=== PATIENT | female | born 1955 | race African-American/Black ===

== ENCOUNTER 2018-08-26 09:03 | Emergency (ER) | payer SELFPAY ==
--- NOTE | 2018-08-26 10:21 | ER Document Report ---
ED Medical Screen (RME) - General Chief Complaint: Shoulder Pain Stated Complaint: SHOULDER PAIN Time Seen by Provider: 08/26/18 10:11 Mode of Arrival: Ambulatory Information source: Patient Notes: Patient is a 63-year-old female comes emergency room complaining of right shoulder pain and inability to raise her right shoulder and having numbness and tingling going down the fingers of the right arm. On my physical exam patient did not inform me that going back a few months ago she was living in [place] where they do traveling mammograms and she went to have one done they contacted her and told her she had a lump on her breast on the right side to come back they did a biopsy and she went home it started to heal up where they done the biopsy and after a few more weeks it started to D has and patient attempted to fix it herself with antibiotic cream and then it got aggressive and she is not able to see a physician because she lost her insurance and she moved here to [place]. Currently she is lost the feeling in her right arm and on evaluation of her biopsy area there is an advanced necrosis of her right upper breast and into her axilla. Patient is being moved over to the main side. TRAVEL OUTSIDE OF THE U.S[place] IN LAST 30 DAYS: No - HPI Onset: Other - 2 months ago Quality of pain: Pressure, Throbbing Severity: Severe Pain Level: 4 Exacerbated by: Movement Relieved by: Denies Similar symptoms previously: Yes Recently seen / treated by doctor: No - Related Data Allergies/Adverse Reactions: No Known Allergies Allergy (Verified 08/26/18 09:05) Past Medical History - General Information source: Patient Review of Systems - Review of Systems Constitutional: No symptoms reported EENT: No symptoms reported Cardiovascular: No symptoms reported Respiratory: No symptoms reported Gastrointestinal: No symptoms reported Genitourinary: No symptoms reported Female Genitourinary: No symptoms reported Musculoskeletal: Muscle pain Skin: No symptoms reported Hematologic/Lymphatic: No symptoms reported Neurological/Psychological: Tingling -: Yes All other systems reviewed and negative Physical Exam - Vital signs Vitals: Temp Pulse Resp BP Pulse Ox 98.9 F 124 H 26 H 139/69 H 98 08/26/18 09:14 08/26/18 09:14 08/26/18 09:14 08/26/18 09:14 08/26/18 09:14 Interpretation: Hypertensive, Tachycardic - Notes Notes: This is a well-nourished well-developed 63-year-old female who is in no apparent distress at this time however she does appear very uncomfortable. Auscultation of the lungs show she has bilateral breath sounds increased and clear to auscultation. Heart is tachycardic no murmur heard Examination right shoulder shows extensive necrosis of the right shoulder and axillary area this is on just a brief glimpse in view. Needs further evaluation on main side of room. Course - Vital Signs Vital signs: Temp Pulse Resp BP Pulse Ox 98.9 F 124 H 26 H 139/69 H 98 08/26/18 09:14 08/26/18 09:14 08/26/18 09:14 08/26/18 09:14 08/26/18 09:14 Doctor's Discharge - Discharge Clinical Impression: Wound of right shoulder Qualifiers: Encounter type: initial encounter Qualified Code(s): S41.001A - Unspecified open wound of right shoulder, initial encounter
--- NOTE | 2018-08-26 11:04 | ER Document Report ---
ED General - General Chief Complaint: Shoulder Pain Stated Complaint: SHOULDER PAIN Time Seen by Provider: 08/26/18 10:11 Mode of Arrival: Ambulatory Notes: This is a 63-year-old female to emergency department for evaluation of abnormal swelling to her right upper extremity as well as deformed breast. Patient was told that she needed breast biopsy several years ago but did not have that happen. Has noticed over the last couple of years increasing deformity of the right breast. Necrotic looking tissue. Right arm became more more swollen and has some numbness and tingling as well. Intermittent chills and fevers at night. No abnormal weight gain or weight loss. States that she has not had insurance so has not been able to get follow-up care. She is concerned she may have breast cancer. TRAVEL OUTSIDE OF THE [place] IN LAST 30 DAYS: No - HPI Onset/Duration: Gradual, Constant Quality of pain: Achy Severity: Moderate Pain Level: 2 - Related Data Allergies/Adverse Reactions: No Known Allergies Allergy (Verified 08/26/18 09:05) Past Medical History - General Information source: Patient - Social History Smoking Status: Current Every Day Smoker Chew tobacco use (# tins/day): No Frequency of alcohol use: Social Drug Abuse: None Lives with: Family Family History: Reviewed & Not Pertinent Patient has suicidal ideation: No Patient has homicidal ideation: No Renal/ Medical History: Denies: Hx Peritoneal Dialysis Review of Systems - Review of Systems Notes: Constitutional: denies: Chills, Diaphoresis, Fever, Malaise, Weakness EENT: denies: Eye discharge, Blurred vision, Tearing, Double vision, Nose congestion, Nose discharge, Throat swelling, Mouth pain Cardiovascular: denies: Palpitations, Heart racing, Orthopnea, Dyspnea, Chest pain Respiratory: denies: Cough, Hurts to breathe, Wheezing, Shortness of breath Gastrointestinal: denies: Abdominal pain, Diarrhea, Nausea, Vomiting, Black stools, bright red blood in stool Genitourinary: denies: Burning, Dysuria, Discharge, Frequency, Flank pain, Hematuria Musculoskeletal: denies: Joint pain, Joint swelling, Muscle pain, Muscle stiffness, back pain Hematologic/Lymphatic: denies: Anemia, Easy bleeding, Easy bruising, Blood clots Neurological/Psychological: denies: Confusion, Dementia, Depression, Loss of consciousness Skin: Patient has abnormal skin lesions and breakdown of the skin around the right breast with deformed right breast tissue. Physical Exam - Vital signs Vitals: Temp Pulse Resp BP Pulse Ox 98.9 F 124 H 26 H 139/69 H 98 08/26/18 09:14 08/26/18 09:14 08/26/18 09:14 08/26/18 09:14 08/26/18 09:14 Interpretation: Normal - General General appearance: Appears well, Alert - HEENT Head: Normocephalic, Atraumatic Eyes: Normal Pupils: PERRL - Respiratory Respiratory status: No respiratory distress Chest status: Nontender Breath sounds: Normal Chest palpation: Normal - Cardiovascular Rhythm: Tachycardia Heart sounds: Normal auscultation Murmur: No - Abdominal Inspection: Normal Distension: No distension Bowel sounds: Normal Tenderness: Nontender Organomegaly: No organomegaly - Back Back: Normal, Nontender - Extremities General upper extremity: Normal inspection, Nontender, Edema, Normal color, Normal ROM, Other - Mild edema noted to the right upper extremity. General lower extremity: Normal inspection, Nontender, Normal color, Normal ROM , Normal temperature, Normal weight bearing. No: Nevaeh's sign - Neurological Neuro grossly intact: Yes Cognition: Normal Orientation: AAOx4 Khris Coma Scale Eye Opening: Spontaneous Khris Coma Scale Verbal: Oriented Khris Coma Scale Motor: Obeys Commands Khris Coma Scale Total: 15 Speech: Normal Motor strength normal: LUE, RUE, LLE, RLE Sensory: Normal - Psychological Associated symptoms: Normal affect, Normal mood - Skin Skin Temperature: Warm Skin Moisture: Dry Skin Color: Other - The skin tissue to the right breast is necrotic in nature with abnormal appearance consistent with possible breast cancer. Appears to have chronic appearance. Course - Re-evaluation Re-evalutation: 08/26/18 12:52 Patient has a very concerning exam for advanced breast cancer. Is tachycardic and tachypneic. Will consult with general surgeon. Will order CT scan of the chest to evaluate the extent of the necrosis. Also in the setting of tachycardia and tachypnea CT scan will help rule out pulmonary embolism. I have consulted with the general surgeon, Dr. Oh for guidance and the initial treatment of this lady who more than likely has of breast cancer. 08/26/18 13:31 Her Althea to do a fine-needle aspiration here at the bedside. Consulted with Dr. Hager with oncology who is willing to see her as an outpatient to get started on chemo and radiation. CT scan is definitely concerning for fungating breast mass. Patient has been counseled with regards to the results. She is taking the news quite well. 08/26/18 13:32 Laboratory 08/26/18 08/26/18 08/26/18 11:42 11:42 11:42 WBC 4.3 RBC 4.34 Hgb 13.9 Hct 39.6 MCV 91 MCH 32.1 MCHC 35.2 RDW 15.4 H Plt Count 151 Seg Neutrophils % 52.8 Lymphocytes % 29.7 Monocytes % 14.4 H Eosinophils % 2.0 Basophils % 1.1 Absolute Neutrophils 2.3 Absolute Lymphocytes 1.3 Absolute Monocytes 0.6 Absolute Eosinophils 0.1 Absolute Basophils 0.0 Sodium 142.8 Potassium 4.2 Chloride 105 Carbon Dioxide 26 Anion Gap 12 BUN 14 Creatinine 0.56 Est GFR ( Amer) > 60 Est GFR (Non-Af Amer) > 60 Glucose 111 H Lactic Acid 1.2 Calcium 9.7 Total Bilirubin 0.6 Direct Bilirubin 0.3 Neonat Total Bilirubin Not Reportable Neonat Direct Bilirubin Not Reportable Neonat Indirect Bili Not Reportable AST 26 ALT 14 Alkaline Phosphatase 96 Total Protein 7.7 Albumin 3.5 Chest X-Ray 08/26/18 11:13 IMPRESSION: Bibasilar atelectasis. 2.5 x 1.4 cm nodule projected over the right lower hilum, either an enlarged lymph node or primary lung nodule Chest/Abdomen CTA 08/26/18 11:48 IMPRESSION: No CT angio evidence of acute pulmonary emboli or thoracic aortic dissection. Large right breast mass with malignant adenopathy in the right axilla involving the brachials plexus and encasing the right axillary artery. Patency of the right axillary/subclavian vein is difficult to discern on today's study. Significant contralateral left axillary adenopathy 08/26/18 14:02 The biopsy has been performed. Specimen sent to pathology. Will DC at this time based on Dr. Hager's recommendations. She thinks that she can take care of this patient as an outpatient. Patient has been advised to return in the event that she develops any worsening symptoms or needs any help with her navigation through this medical system. - Vital Signs Vital signs: Temp Pulse Resp BP Pulse Ox 98.9 F 124 H 26 H 139/69 H 98 08/26/18 09:14 08/26/18 09:14 08/26/18 09:14 08/26/18 09:14 08/26/18 09:14 - Laboratory Result Diagrams: 08/26/18 11:42 08/26/18 11:42 Laboratory results interpreted by me: 08/26/18 08/26/18 11:42 11:42 RDW 15.4 H Monocytes % 14.4 H Glucose 111 H - EKG Interpretation by Me EKG shows normal: Bells, Intervals, QRS Complexes, ST-T Waves Rate: Tachycardia Discharge - Discharge Clinical Impression: Cancer of right breast Qualifiers: Breast location: unspecified site of breast Estrogen receptor status: unspecified Patient sex: female Qualified Code(s): C50.911 - Malignant neoplasm of unspecified site of right female breast Condition: Good Disposition: HOME, SELF-CARE Instructions: Breast Lumps ([facility]) Additional Instructions: At this time it appears that you may have breast cancer. A biopsy was obtained today. Please go directly to Dr. Hager's office today she will see you at this time. Prescriptions: Hydrocodone/Acetaminophen [Roscoe 5-325 mg Tablet] 1 tab PO TID PRN 5 Days #20 tablet PRN Reason: Pain Scale Of 3 Referrals: WENDY HAGER MD [ACTIVE STAFF] - 08/26/18 2:05 pm
--- NOTE | 2018-08-26 11:38 | RADIOLOGY REPORT (SQ) ---
EXAM DESCRIPTION: CHEST SINGLE VIEW COMPLETED DATE/TIME: 08/26/2018 11:28 am REASON FOR STUDY: chest pain COMPARISON: None. EXAM PARAMETERS: NUMBER OF VIEWS: One view. TECHNIQUE: Single frontal radiographic view of the chest acquired. RADIATION DOSE: NA LIMITATIONS: None. FINDINGS: LUNGS AND PLEURA: Minimal bibasilar atelectasis. Lungs are otherwise well inflated and cl ear. No pleural effusion or pneumothorax. MEDIASTINUM AND HILAR STRUCTURES: Projected over the right lower hilum, a 2.5 by 1.4 cm nodule is pre sent. This could either represent an enlarged right hilar lymph node or small right basilar lung nod ule. HEART AND VASCULAR STRUCTURES: Heart normal in size. Normal vasculature. BONES: No acute findings. HARDWARE: None in the chest. OTHER: No other significant finding. IMPRESSION: Bibasilar atelectasis. 2.5 x 1.4 cm nodule projected over the right lower hilum, either an enlarged lymph node or primary adriana ng nodule TECHNICAL DOCUMENTATION: JOB ID: [id number] [employer]- All Rights Reserved Reading location - IP/workstation name: [facility]
[2018-08-26 12:02] LABS: ABSOLUTE EOSINOPHILS # (AUTO) 0.1 10^3/uL (0.0-0.6); ABSOLUTE LYMPHOCYTES (AUTO) 1.3 10^3/uL (0.5-4.7); ABSOLUTE MONOCYTES (AUTO) 0.6 10^3/uL (0.1-1.4); ABSOLUTE NEUT (AUTO) 2.3 10^3/uL (1.7-8.2); BASOPHILS % (AUTO) 1.1 % (0-2); HEMATOCRIT 39.6 % (36.0-47.0); HEMOGLOBIN 13.9 g/dL (12.0-15.5); LYMPHOCYTES % (AUTO) 29.7 % (13-45); MEAN CORPUSCULAR HEMOGLOBIN 32.1 pg (27.0-33.4); MEAN CORPUSCULAR HGB CONC 35.2 g/dL (32.0-36.0); MEAN CORPUSCULAR VOLUME 91 fl (80-97); MONOCYTES % (AUTO) 14.4 % (3-13); PLATELET COUNT 151 10^3/uL (150-450); RED BLOOD COUNT 4.34 10^6/uL (3.72-5.28); RED CELL DISTRIBUTION WIDTH 15.4 % (11.5-14.0); SEGMENTED NEUTROPHILS % (AUTO) 52.8 % (42-78); TOTAL CELLS COUNTED % (AUTO) 100 %; WHITE BLOOD COUNT 4.3 10^3/uL (4.0-10.5)
[2018-08-26 12:25] LABS: ALANINE AMINOTRANSFERASE 14 U/L (9-52); ALBUMIN 3.5 g/dL (3.5-5.0); ALKALINE PHOSPHATASE 96 U/L (38-126); ANION GAP 12 (5-19); ASPARTATE AMINO TRANSFERASE 26 U/L (14-36); BILIRUBIN,DIRECT 0.3 mg/dL (0.0-0.4); BILIRUBIN,TOTAL 0.6 mg/dL (0.2-1.3); BLOOD UREA NITROGEN 14 mg/dL (7-20); CALCIUM 9.7 mg/dL (8.4-10.2); CARBON DIOXIDE 26 mmol/L (22-30); CHLORIDE 105 mmol/L (98-107); GLUCOSE 111 mg/dL (75-110); POTASSIUM 4.2 mmol/L (3.6-5.0); SODIUM 142.8 mmol/L (137-145); TOTAL PROTEIN 7.7 g/dL (6.3-8.2)
--- NOTE | 2018-08-26 13:26 | RADIOLOGY REPORT (SQ) ---
EXAM DESCRIPTION: CTA CHEST COMPLETED DATE/TIME: 08/26/2018 1:04 pm REASON FOR STUDY: chest pain, tachycardia COMPARISON: Chest films earlier today TECHNIQUE: CT scan of the chest performed using helical scanning technique with dynamic intravenous contrast injection. Images reviewed with lung, soft tissue and bone windows. Reconstructed coronal and sagittal MPR images reviewed. Additional 3 dimensional post-processing performed to develop Maximal Intensity Projection images (KS P). All images stored on PACS. All CT scanners at this facility use dose modulation, iterative reconstruction, and/or weight based d osing when appropriate to reduce radiation dose to as low as reasonably achievable (ALARA). [facility]: Dose Right [facility]: CareDose [facility]: Dose Right [facility]: Teradose 4D [facility]: Voice123 CONTRAST TYPE AND DOSE: contrast/concentration: Isovue 350.00 mg/ml; Total Contrast Delivered: 75.0 ml; Total Saline Delivered: 110.0 ml Contrast bolus optimized for the pulmonary arteries. Contrast bolus is diagnostic for the thoracic a pricilla. RENAL FUNCTION: GFR > 60. RADIATION DOSE: CT Rad equipment meets quality standard of care and radiation dose reduction techniq ues were employed. CTDIvol: 15.0 - 39.7 mGy. DLP: 517 mGy-cm. . LIMITATIONS: None. FINDINGS: LUNGS AND PLEURA: There is bibasilar bandlike atelectasis. No right hilar or lower lung n odule is identified. Shadow on plain film earlier today is most likely the right-sided pulmonary vei n. No pleural effusions. No pneumothorax. AORTA AND GREAT VESSELS: No aneurysm. No thoracic aortic dissection. HEART: No pericardial effusion. No significant coronary artery calcifications. PULMONARY ARTERIES: No emboli visualized in the main pulmonary arteries or the segmental branches. HILAR AND MEDIASTINAL STRUCTURES: No identified masses or abnormal nodes. HARDWARE: None in the chest. UPPER ABDOMEN: No significant findings. Limited exam. THYROID AND OTHER SOFT TISSUES: The patient has a right breast mass 5 x 5 x 3 cm in size, with overly ing skin ulceration and skin thickening. Along its dorsal aspect, this mass appears to invade the ri t pectoralis major muscle lateral edge. There is an abnormal spiculated silvestre mass in the right axilla encasing the right axillary artery, an d right brachials plexus structures. It is difficult to discern whether the right subclavian vein is patent by CT on the study. The right axillary mass measures 7 cm craniocaudad by 4.6 cm AP x 3 cm t ransverse, best shown on coronal image 29. Massively enlarged left axillary lymph nodes are seen extending into the retropectoral region on the left. The largest of these is 3 x 2.6 cm in size. These findings were discussed with Dr. Lovett in the emergency room. BONES: No acute fracture. No gross lytic or sclerotic bony metastatic lesions over the field of view 3D MIPS: Confirm above findings. OTHER: No other significant finding. IMPRESSION: No CT angio evidence of acute pulmonary emboli or thoracic aortic dissection. Large right breast mass with malignant adenopathy in the right axilla involving the brachials plexus and encasing the right axillary artery. Patency of the right axillary/subclavian vein is difficult t o discern on today's study. Significant contralateral left axillary adenopathy COMMENT: Quality ID # [id number]: Final reports with documentation of one or more dose reduction techniques (e.g., Automated exposure control, adjustment of the mA and/or kV according to patient size, use of iterative reconstruction technique) TECHNICAL DOCUMENTATION: JOB ID: [id number] [employer]- All Rights Reserved Reading location - IP/workstation name: [facility]
[2018-08-26] MEDS ORDERED: MORPHINE SULFATE 10 MG/ML INJ ONE (13:59)
--- NOTE | 2018-08-26 14:05 | RADIOLOGY REPORT (SQ) ---
EXAM DESCRIPTION: VENOUS UNILATERAL UPPER COMPLETED DATE/TIME: 08/26/2018 1:47 pm REASON FOR STUDY: right arm swelling COMPARISON: CT chest same date TECHNIQUE: Dynamic and static smith scale and color images acquired of the right arm venous system. S elected spectral images acquired with additional compression and augmentation maneuvers. The contrala teral subclavian vein and internal jugular vein were also imaged. Images stored on PACS. LIMITATIONS: None. FINDINGS: RIGHT INTERNAL JUGULAR VEIN: Normal phasicity, compression, augmentation. No visualized echogenic material on smith scale. No defects on color images. Comparison opposite side normal. SUBCLAVIAN VEIN: Normal compression, augmentation. No visualized echogenic material on smith scale. No defects on color images. AXILLARY VEIN: Normal compression, augmentation. No visualized echogenic material on smith scale. No d efects on color images. BRACHIAL VEIN: Normal compression, augmentation. No visualized echogenic material on smith scale. No d efects on color images. BASILIC VEIN: Normal compression, augmentation. No visualized echogenic material on smith scale. No de fects on color images. CEPHALIC VEIN: Normal compression, augmentation. No visualized echogenic material on smith scale. No d efects on color images. OTHER: No other significant finding. LEFT SUBCLAVIAN VEIN AND INTERNAL JUGULAR VEIN: Normal phasicity, compression and augmentation. No visualized echogenic material on smith scale. No de fects on color images. IMPRESSION: No Doppler evidence of right axillary or subclavian vein thrombosis. No evidence of deep or superficial venous thrombosis right arm TECHNICAL DOCUMENTATION: JOB ID: [id number] [employer]- All Rights Reserved Reading location - IP/workstation name: [facility]
[2018-08-26 14:21] VITALS: BP 171/76
--- NOTE | 2018-08-26 21:07 | OPERATIVE REPORT E ---
Operative Report NAME: CIRA BARCENAS : 1955 AGE: 63Y DATE OF SURGERY: 08/26/2018 ROOM: PREOPERATIVE DIAGNOSIS: FUNGATING MASS ON THE RIGHT BREAST. POSTOPERATIVE DIAGNOSIS: FUNGATING MASS ON THE RIGHT BREAST. OPERATION: Fine needle aspiration biopsy, right breast mass. SURGEON: NOEMI MATTHEWS M.D. INDICATION FOR PROCEDURE: This is a 63-year-old female who came to the ED with numbness of the right arm and a mass along the right breast. She had a CT scan of the chest which showed a fungating mass growing close to the brachial plexus. The ED doctor called the oncologist who requested a fine needle aspiration prior to starting emergency chemo and radiation therapy. DESCRIPTION OF PROCEDURE: After discussing with the patient and giving the risks, the right breast area around the nipple was then prepped in the usual sterile fashion. With the use of an 18 gauge needle and a 5 mL syringe, the most dense area of the breast just above the nipple was then punctured and aspirated some fluid. The specimen was then given to a cyto tech in the room who mounted the specimen in a slide and noted to have enough specimen. I looked at the microscope and definitely had enough cells in there. The puncture site was applied pressure for a minute or two and the bleeding stopped. The patient tolerated the procedure well. The patient was given about 4 mg of morphine IV. DICTATING PHYSICIAN: NOEMI MATTHEWS M.D. [id number] PHY#: [id number] ID: [id number] JOB#: [id number] ACCT: [id number] cc:NOEMI MATTHEWS M.D. >
--- NOTE | 2018-08-27 07:27 | EKG REPORT ---
SEVERITY:- OTHERWISE NORMAL ECG - SINUS TACHYCARDIA : Confirmed by: Myra Gonsalves 27-Aug-2018 07:26:18
== END 2018-08-26 14:22 | disposition home or self-care (01) ==
LOC: ER 09:03
DX: C50.911 Malignant neoplasm of unspecified site of right female breast (principal); I96 Gangrene, not elsewhere classified; R20.0 Anesthesia of skin; R20.2 Paresthesia of skin; R00.0 Tachycardia, unspecified; R60.0 Localized edema; R06.82 Tachypnea, not elsewhere classified; F17.200 Nicotine dependence, unspecified, uncomplicated
CPT/HCPCS: 93005; 99285; 96374; 36415; 85025; 80053; 83605; 88342 ×2; 88341 ×2; 88173 ×2; 88305 ×2; 93971; 71045; 71275; 93010; 10021; J2270

== ENCOUNTER → 2018-09-07 | Outpatient (CLI) | payer SELFPAY ==
--- NOTE | 2018-09-08 07:42 | RADIOLOGY REPORT (SQ) ---
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 TECHNIQUE: Blood glucose level was verified. Above dose of FDG was injected intravenously. 2-D seg mented attenuation correction images were obtained from the base of the skull to the midthighs. Nonc ontrast CT images were obtained for attenuation correction and fusion with emission images. CT image s were performed without oral or intravenous contrast and are not sensitive for parenchymal lesions. A series of overlapping emission PET images were obtained. Images reviewed and manipulated at [facility] by the radiologist. Images stored on PACS. LIMITATIONS: None. FINDINGS: HEAD AND NECK: No areas of abnormal metabolic activity in the soft tissues of the head and neck. CHEST: Patient has an poorly differentiated breast cancer in aunt improved minute upper outer quadran t breast with an ill-defined tumor with skin ulcerations measuring about 5 x 5 cm with pectoralis mus noé invasion. There is nipple skin thickening, overall SUV of tumor is 5.5 In the right axilla, a sclerotic silvestre mass is present measuring about 4.5 x 3 cm in size, with SUV r anging from 3.2 to 6.3. Bulky left axillary adenopathy is present, with a metabolically active 2.6 x 2 cm high a left axillar y lymph node axial image 66 with SUV of 3.5. The largest left axillary lymph node measures 4 x 1.5 c m in size on axial image 79, with SUV of 3.4. ABDOMEN AND PELVIS: No areas of abnormal metabolic activity in the abdomen or pelvis. Expected physi ologic activity is present in the genitourinary system and bowel. PROXIMAL LOWER EXTREMITIES: No areas of abnormal metabolic activity in the soft tissues of the lower extremities. BONES: Diffuse abnormal skeletal metabolic activity is seen throughout the spine, bony pelvis, proxim al humeri and proximal femurs with SUV ranging from 2.[address] FINDINGS: Stones in the gallbladder. OTHER: Liver background activity 1.7 SUV. Blood pool background activity 1.3 SUV. IMPRESSION: Locally advanced right breast cancer with bilateral axillary adenopathy and diffuse skel etal metastatic lesions TECHNICAL DOCUMENTATION: JOB ID: [id number] [employer]- All Rights Reserved Reading location - IP/workstation name: [email or web address]
== END ==
LOC: RAD 14:45
PROVIDERS: ATTEND Internal Medicine Medical Oncology
DX: C50.619 Malignant neoplasm of axillary tail of unspecified female breast (principal)
CPT/HCPCS: 78815; A9552

== ENCOUNTER → 2018-09-19 | Outpatient (CLI) | payer SELFPAY ==
--- NOTE | 2018-09-19 12:55 | RADIOLOGY REPORT (SQ) ---
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 Left ventricular functional analysis performed. LIMITATIONS: None. FINDINGS: LEFT VENTRICULAR FUNCTION: EJECTION FRACTION: 83%. END-DIASTOLIC VOLUME: 86 mL. END-SYSTOLIC VOLUME: 13 mL. WALL MOTION: No focal wall motion abnormalities. OTHER: No other significant finding. IMPRESSION: NORMAL CARDIAC MUGA STUDY. Left ventricular ejection fraction estimated at 83%. TECHNICAL DOCUMENTATION: JOB ID: [id number] [employer]- All Rights Reserved Reading location - IP/workstation name: [email or web address]
== END ==
LOC: RAD 10:46
PROVIDERS: ATTEND Internal Medicine Medical Oncology
DX: C50.619 Malignant neoplasm of axillary tail of unspecified female breast (principal)
CPT/HCPCS: 78472; A9560; Q9969

== ENCOUNTER → 2018-09-22 | Outpatient (CLI) | payer SELFPAY ==
--- NOTE | 2018-09-22 14:58 | RADIOLOGY REPORT (SQ) ---
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 The route of agent administration: Intravenous. ADDITIONAL DRUGS AND DOSES: None. TECHNIQUE: Routine delayed images at 3 hours post radionuclide injection acquired of the bony skelet on including anterior and posterior whole-body projections and additional focused images as needed. LIMITATIONS: None. FINDINGS: BONES: Mild increased uptake in characteristic locations of osteoarthritis including the b ilateral acromioclavicular and glenohumeral joints, and bilateral knees. No increased uptake worrisome for metastatic disease. KIDNEYS: Symmetric excretion. OTHER: No other significant finding. IMPRESSION: No uptake worrisome for metastatic disease. COMMENT: Quality measure 147: Current bone scan is compared with any available plain radiographs, p rior bone scans, and CT/MRI. TECHNICAL DOCUMENTATION: JOB ID: [id number] [employer]- All Rights Reserved Reading location - IP/workstation name: [email or web address]
== END ==
LOC: RAD 10:57
PROVIDERS: ATTEND Internal Medicine Medical Oncology
DX: C50.619 Malignant neoplasm of axillary tail of unspecified female breast (principal)
CPT/HCPCS: 78306; A9561; Q9969

== ENCOUNTER 2019-03-22 10:57 | Observation (INO) | payer MEDICAID ==
[2019-03-22] MEDS ORDERED: HYDROMORPHONE HCL INJ/PF 2 MG/ML AMPULE IV ONE (12:09)
[2019-03-22] MEDS ORDERED: NORMAL SALINE 1000 ML 1,000 ML IV ONE ×2 (12:09→13:52)
--- NOTE | 2019-03-22 12:17 | ER Document Report ---
ED General - General Chief Complaint: Chest Pain Stated Complaint: CHEST PAIN Time Seen by Provider: 03/22/19 11:56 Primary Care Provider: WENDY HAGER MD [ACTIVE STAFF] - Follow up as needed TRAVEL OUTSIDE OF THE [place] IN LAST 30 DAYS: No - HPI Notes: Patient is a 63-year-old female that presents to the emergency department for chief complaint of chest pain and muscle spasms. Patient is currently undergoing chemotherapy for right breast cancer. She had her last dose 5 days ago and states she went back for an injection the following day. Since receiving the injection she has had muscle cramping all over her body. She states that it radiates from her neck down her back into her legs and feet. She states her upper extremities are cramping as well. She does have o xycodone at home and has not had any since yesterday. Patient denies any fever, chills, nausea, vomiting, abdominal pain. She does state that she feels short of breath since the onset of the chest pain. She denies any aggravating or relieving factors to her pain. The pain has been present since this morning but does wax and wane in intensity. She denies radiation of her pain from her left anterior chest. Past Medical History: Breast cancer, arthritis Past Surgical History: Reviewed in chart Social History: Denies tobacco and alcohol use Family History: Reviewed and noncontributory for presenting illness Allergies: Reviewed, see documented allergy list. REVIEW OF SYSTEMS: CONSTITUTIONAL : No fever No chills No diaphoresis No recent illness EENT: No vision changes No congestion No sore throat CARDIOVASCULAR: chest pain No palpitations RESPIRATORY: shortness of breath No cough difficulty breathing GASTROINTESTINAL: No abdominal pain No nausea No vomiting No diarrhea GENITOURINARY: No dysuria No hematuria No difficulty urinating MUSCULOSKELETAL: back pain leg pain arm pain SKIN: No rashes No lesions LYMPHATIC: No swollen, enlarged glands. NEUROLOGICAL: No lightheadedness No headache No weakness No paresthesias PSYCHIATRIC: No anxiety No depression PHYSICAL EXAMINATION: Vital signs reviewed, nursing noted reviewed. GENERAL: Ill-appearing, well-nourished, alert HEAD: Atraumatic, normocephalic. EYES: Eyes appear normal, extraocular movements intact, sclera anicteric, conjunctiva are normal. ENT: nares patent, oropharynx clear without exudates. Mildly dry mucous membranes. NECK: Normal range of motion, supple without lymphadenopathy LUNGS: Breath sounds clear to auscultation bilaterally and equal. No wheezes rales or rhonchi. HEART: Tachycardic rate and regular rhythm without murmurs, no friction rub ABDOMEN: Soft, nontender, normoactive bowel sounds. No rebound, guarding, or rigidity. No masses appreciated. EXTREMITIES: Nontender, good range of motion, no pitting or edema. NEUROLOGICAL: No focal neurological deficits. Moves all extremities spontaneously Motor and sensory grossly intact on exam. PSYCH: Normal mood, normal affect. SKIN: Warm, Dry, normal turgor, right anterior chest wall wound with good granulation tissue and no active bleeding. - Related Data Allergies/Adverse Reactions: No Known Allergies Allergy (Verified 03/22/19 10:57) Past Medical History - Social History Smoking Status: Never Smoker Family History: Reviewed & Not Pertinent Renal/ Medical History: Denies: Hx Peritoneal Dialysis Physical Exam - Vital signs Vitals: Temp Pulse Resp BP Pulse Ox 99.1 F 150 H 26 H 100/76 100 03/22/19 11:18 03/22/19 11:18 03/22/19 11:18 03/22/19 11:18 03/22/19 11:18 Course - Re-evaluation Re-evalutation: 03/22/19 12:17 vitals reviewed. Nursing notes reviewed. Patient presented to the emergency room tachycardic and tachypneic. She is complaining of new onset chest pain and is currently undergoing chemotherapy for breast cancer. At this point I am concerned for pulmonary embolism. Patient was started on IV fluids and CTA of the chest will be obtained. Her blood pressure is stable. She is currently afebrile. Patient was ordered medication for pain as well. 03/22/19 14:41 Patient's heart rate is improving with fluids. She has had 1 L and her heart rate has gone from [address] scan shows no pulmonary embolism. Patient's initial troponin is negative. On reevaluation after 1 L of fluid she is feeling significantly better. Her chest pain is completely resolved and she appears much more comfortable. I did discuss her care with Dr. Hager who agrees with admission for hydration. Patient has no fever or leukocytosis to suggest underlying infection. We have not yet been able to obtain a urine sample however UA is ordered. Patient not having any active symptoms of acute UTI. Antibiotics will be held until urine sample can be completed. Patient is improving but will be admitted to the hospital for her persistent tachycardia, dehydration and chest pain. Her care was discussed with Dr. Jacobs Laboratory 03/22/19 03/22/19 03/22/19 12:36 12:36 12:36 WBC 5.8 RBC 3.93 Hgb 12.4 Hct 36.5 MCV 93 MCH 31.7 MCHC 34.1 RDW 17.4 H Plt Count 68 L Total Counted 100 Seg Neutrophils % Not Reportable Seg Neuts % (Manual) 82 H Lymphocytes % Not Reportable Lymphocytes % (Manual) 13 Monocytes % Not Reportable Monocytes % (Manual) 0 L Eosinophils % Not Reportable Eosinophils % (Manual) 5 Basophils % Not Reportable Basophils % (Manual) 0 Absolute Neutrophils Not Reportable Abs Neuts (Manual) 4.8 Absolute Lymphocytes Not Reportable Abs Lymphs (Manual) 0.8 Absolute Monocytes Not Reportable Abs Monocytes (Manual) 0.0 L Absolute Eosinophils Not Reportable Absolute Eos (Manual) 0.3 Absolute Basophils Not Reportable Abs Basophils (Manual) 0.0 Platelet Comment DECREASED Anisocytosis 1+ VBG pH VBG pCO2 VBG HCO3 VBG Base Excess Sodium 132.0 L Potassium 3.9 Chloride 99 Carbon Dioxide 23 Anion Gap 10 BUN 10 Creatinine 0.55 Est GFR ( Amer) > 60 Est GFR (Non-Af Amer) > 60 Glucose 100 Lactic Acid Calcium 9.5 Total Bilirubin 1.6 H Direct Bilirubin 0.6 H Neonat Total Bilirubin Not Reportable Neonat Direct Bilirubin Not Reportable Neonat Indirect Bili Not Reportable AST 55 H ALT 45 Alkaline Phosphatase 76 Troponin I < 0.012 Total Protein 6.7 Albumin 3.5 03/22/19 03/22/19 12:36 12:36 WBC RBC Hgb Hct MCV MCH MCHC RDW Plt Count Total Counted Seg Neutrophils % Seg Neuts % (Manual) Lymphocytes % Lymphocytes % (Manual) Monocytes % Monocytes % (Manual) Eosinophils % Eosinophils % (Manual) Basophils % Basophils % (Manual) Absolute Neutrophils Abs Neuts (Manual) Absolute Lymphocytes Abs Lymphs (Manual) Absolute Monocytes Abs Monocytes (Manual) Absolute Eosinophils Absolute Eos (Manual) Absolute Basophils Abs Basophils (Manual) Platelet Comment Anisocytosis VBG pH 7.55 H VBG pCO2 29.3 L VBG HCO3 24.8 VBG Base Excess 3.8 Sodium Potassium Chloride Carbon Dioxide Anion Gap BUN Creatinine Est GFR ( Amer) Est GFR (Non-Af Amer) Glucose Lactic Acid 1.8 Calcium Total Bilirubin Direct Bilirubin Neonat Total Bilirubin Neonat Direct Bilirubin Neonat Indirect Bili AST ALT Alkaline Phosphatase Troponin I Total Protein Albumin Chest X-Ray 03/22/19 11:56 IMPRESSION: NO ACUTE FINDINGS. Chest/Abdomen CTA 03/22/19 11:57 IMPRESSION: No emboli visualized in the main pulmonary arteries or the segmental branches.Small scattered areas of subsegmental atelectasis. Postsurgical changes in the right chest wall. Scattered calcified lymph nodes in the left axilla.Heterogeneous enlarged thyroid, 12 mm hypodense nodule in the right lobe. who accepts admission. - Vital Signs Vital signs: Temp Pulse Resp BP Pulse Ox 99.1 F 150 H 23 H 106/67 100 03/22/19 11:18 03/22/19 11:18 03/22/19 13:00 03/22/19 13:00 03/22/19 13:00 - Laboratory Result Diagrams: 03/22/19 12:36 03/22/19 12:36 Laboratory results interpreted by me: 03/22/19 03/22/19 03/22/19 12:36 12:36 12:36 RDW 17.4 H Plt Count 68 L Seg Neuts % (Manual) 82 H Monocytes % (Manual) 0 L Abs Monocytes (Manual) 0.0 L VBG pH 7.55 H VBG pCO2 29.3 L Sodium 132.0 L Total Bilirubin 1.6 H Direct Bilirubin 0.6 H AST 55 H - EKG Interpretation by Me Additional EKG results interpreted by me: 03/22/19 14:45 Interpreted by myself [id number]: Sinus tachycardia, rate 133, normal axis, no ectopy, no STEMI Discharge - Discharge Clinical Impression: Dehydration, Tachycardia Chest pain Qualifiers: Chest pain type: unspecified Qualified Code(s): R07.9 - Chest pain, unspecified Condition: Stable Disposition: ADMITTED OBSERVATION Admitting Provider: Arlene (Hospitalist) Unit Admitted: Telemetry
[2019-03-22 13:15] LABS: VENOUS BLOOD BASE EXCESS 3.8 mmol/L; VENOUS BLOOD HCO3 24.8 mmol/L (20-32); VENOUS BLOOD PCO2 29.3 mmHg (35-63); VENOUS BLOOD PH 7.55 (7.30-7.42)
[2019-03-22 13:24] LABS: HEMATOCRIT 36.5 % (36.0-47.0); HEMOGLOBIN 12.4 g/dL (12.0-15.5); MEAN CORPUSCULAR HEMOGLOBIN 31.7 pg (27.0-33.4); MEAN CORPUSCULAR HGB CONC 34.1 g/dL (32.0-36.0); MEAN CORPUSCULAR VOLUME 93 fl (80-97); RED BLOOD COUNT 3.93 10^6/uL (3.72-5.28); RED CELL DISTRIBUTION WIDTH 17.4 % (11.5-14.0); WHITE BLOOD COUNT 5.8 10^3/uL (4.0-10.5)
[2019-03-22] MEDS ORDERED: ONDANSETRON HCL INJ/PF 4 MG/2 ML SDV IV ONE (13:28)
--- NOTE | 2019-03-22 13:30 | RADIOLOGY REPORT (SQ) ---
EXAM DESCRIPTION: CHEST SINGLE VIEW COMPLETED DATE/TIME: 03/22/2019 1:18 pm REASON FOR STUDY: chest pain COMPARISON: 08/26/2018 TECHNIQUE: Single frontal radiographic view of the chest acquired. NUMBER OF VIEWS: One view. LIMITATIONS: None. FINDINGS: LUNGS AND PLEURA: No pneumothorax. No consolidation or pleural effusion. MEDIASTINUM AND HILAR STRUCTURES: Stable. HEART AND VASCULAR STRUCTURES: Stable. BONES: No acute findings. HARDWARE: Left sided chest port and catheter appear in expected position. OTHER: No other significant finding. IMPRESSION: NO ACUTE FINDINGS. TECHNICAL DOCUMENTATION: JOB ID: [id number] [place]-72 2010 [employer]- All Rights Reserved Reading location - IP/workstation name: [email or web address]
[2019-03-22 13:36] LABS: ALANINE AMINOTRANSFERASE 45 U/L (9-52); ALBUMIN 3.5 g/dL (3.5-5.0); ALKALINE PHOSPHATASE 76 U/L (38-126); ANION GAP 10 (5-19); ASPARTATE AMINO TRANSFERASE 55 U/L (14-36); BILIRUBIN,DIRECT 0.6 mg/dL (0.0-0.4); BILIRUBIN,TOTAL 1.6 mg/dL (0.2-1.3); BLOOD UREA NITROGEN 10 mg/dL (7-20); CALCIUM 9.5 mg/dL (8.4-10.2); CARBON DIOXIDE 23 mmol/L (22-30); CHLORIDE 99 mmol/L (98-107); GLUCOSE 100 mg/dL (75-110); POTASSIUM 3.9 mmol/L (3.6-5.0); TOTAL PROTEIN 6.7 g/dL (6.3-8.2)
[2019-03-22 13:49] LABS: PLATELET COUNT 68 10^3/uL (150-450)
[2019-03-22 13:53] LABS: ABSOLUTE LYMPHOCYTES# (MANUAL) 0.8 10^3/uL (0.5-4.7); ABSOLUTE NEUTROPHILS# (MANUAL) 4.8 10^3/uL (1.7-8.2); BASOPHILS % (MANUAL) 0 % (0-2); EOSINOPHILS % (MANUAL) 5 % (0-6); LYMPHOCYTES % (MANUAL) 13 % (13-45); MONOCYTES % (MANUAL) 0 % (3-13); SEGMENTED NEUTROPHILS % (MAN) 82 % (42-78); TOTAL CELLS COUNTED 100
--- NOTE | 2019-03-22 13:54 | RADIOLOGY REPORT (SQ) ---
EXAM DESCRIPTION: CTA CHEST COMPLETED DATE/TIME: 03/22/2019 1:35 pm REASON FOR STUDY: chest pain COMPARISON: None. TECHNIQUE: CT scan of the chest performed using helical scanning technique with dynamic intravenous contrast injection. Images reviewed with lung, soft tissue and bone windows. Reconstructed coronal and sagittal MPR images reviewed. Additional 3 dimensional post-processing performed to develop Maximal Intensity Projection images (SC P). All images stored on PACS. All CT scanners at this facility use dose modulation, iterative reconstruction, and/or weight based d osing when appropriate to reduce radiation dose to as low as reasonably achievable (ALARA). [facility]: Dose Right [facility]: CareDose [facility]: Dose Right [facility]: Teradose 4D [facility]: [employer] CONTRAST TYPE AND DOSE: contrast/concentration: Isovue 350.00 mg/ml; Total Contrast Delivered: 53.0 ml; Total Saline Delivered: 78.0 ml Contrast bolus optimized for the pulmonary arteries. Not diagnostic for the aorta. RENAL FUNCTION: Not obtained due to patient condition RADIATION DOSE: CT Rad equipment meets quality standard of care and radiation dose reduction techniq ues were employed. CTDIvol: 6.6 - 14.9 mGy. DLP: 525 mGy-cm. . LIMITATIONS: None. FINDINGS: LUNGS AND PLEURA: No masses, infiltrates, or pneumothorax. Small scattered areas of subse gmental atelectasis. No pleural effusions or pleural calcifications. AORTA AND GREAT VESSELS: No aneurysm. Contrast bolus not optimized for the aorta. HEART: No pericardial effusion. Mild coronary artery calcifications. PULMONARY ARTERIES: No emboli visualized in the main pulmonary arteries or the segmental branches. HILAR AND MEDIASTINAL STRUCTURES: No identified masses or abnormal nodes. HARDWARE: Left chest port UPPER ABDOMEN: Small calcified gallstones. Limited exam. THYROID AND OTHER SOFT TISSUES: Heterogeneous enlarged thyroid, 12 mm hypodense nodule in the right l obe. BONES: No acute finding. 3D MIPS: Confirm above findings. OTHER: Postsurgical changes in the right chest wall. Scattered calcified lymph nodes in the left axi lla. IMPRESSION: No emboli visualized in the main pulmonary arteries or the segmental branches.Small scat tered areas of subsegmental atelectasis. Postsurgical changes in the right chest wall. Scattered calcified lymph nodes in the left axilla.Het erogeneous enlarged thyroid, 12 mm hypodense nodule in the right lobe. COMMENT: Quality ID # [id number]: Final reports with documentation of one or more dose reduction techniques (e.g., Automated exposure control, adjustment of the mA and/or kV according to patient size, use of iterative reconstruction technique) TECHNICAL DOCUMENTATION: JOB ID: [id number] [place]-72 2010 [employer]- All Rights Reserved Reading location - IP/workstation name: [email or web address]
[2019-03-22 13:56] LABS: ANISOCYTOSIS 1+; PLATELET COMMENT DECREASED
[2019-03-22] MEDS ORDERED: ONDANSETRON HCL INJ/PF 4 MG/2 ML SDV IV PRN (15:03)
[2019-03-22] MEDS ORDERED: DRONABINOL 2.5 MG CAPSULE PO PRN (15:11)
--- NOTE | 2019-03-22 15:25 | PDOC H&P ---
History of Present Illness Admission Date/PCP: 03/22/19 14:58 History of Present Illness: CIRA BARCENAS is a 63 year old black female patient with past medical history of stage IV breast CA status post surgery and currently has been on chemo her last chemo was 5 days ago. Chief complaint of muscle spasm, nausea and vomiting of ingested material. The muscle spasm and pain radiated to her back to her chest and down to her post lower extremities. She has been taking her oxycodone at home to no avail. In ER patient found to be tachycardic with heart rate of 136. Blood works are unremarkable except mild hyponatremia with sodium of 132. She denies any fevers, chills, cough, diarrhea, urinary complaints, dizziness, headache, seizure. Patient is going to be admitted for observation to telemetry floor. For her pain she has been started on fentanyl patch oxycodone and long-a cting morphine sulfate 30 mg every 12 hours. She is going to be hydrated cautiously and she was started on Marinol and Remeron to boost her appetite. Past Surgical History Past Surgical History: Reports: Mastectomy Social History Smoking Status: Never Smoker Family History Family History: Reviewed & Not Pertinent, DM Parental Family History Reviewed: Yes Children Family History Reviewed: Yes Sibling(s) Family History Reviewed.: Yes Medication/Allergy Home Medications: Hydrocodone/Acetaminophen [[place] 5-325 mg Tablet] 1 tab PO TID PRN 5 Days #20 tablet 08/26/18 Allergies/Adverse Reactions: No Known Allergies Allergy (Verified 03/22/19 10:57) Review of Systems Cardiovascular: PRESENT: chest pain Respiratory: PRESENT: as per HPI Gastrointestinal: PRESENT: as per HPI, nausea, vomiting Musculoskeletal: PRESENT: back pain Neurological: PRESENT: as per HPI Psychiatric: PRESENT: as per HPI Physical Exam Vital Signs: Temp Pulse Resp BP Pulse Ox 99.1 F 150 H 23 H 106/67 100 03/22/19 11:18 03/22/19 11:18 03/22/19 13:00 03/22/19 13:00 03/22/19 13:00 Intake & Output 03/21/19 03/22/19 03/23/19 06:59 06:59 06:59 Intake Total 1000 Balance 1000 Weight 68 kg General appearance: PRESENT: thin Head exam: PRESENT: atraumatic Eye exam: PRESENT: conjunctiva pink Neck exam: ABSENT: carotid bruit, JVD, lymphadenopathy, thyromegaly Respiratory exam: PRESENT: other - Granulating good on the right breast area close to her axilla Cardiovascular exam: PRESENT: tachycardia GI/Abdominal exam: PRESENT: normal bowel sounds, soft. ABSENT: distended, guarding, mass, organolmegaly, rebound, tenderness Neurological exam: PRESENT: awake, oriented to person, oriented to place, oriented to time, oriented to situation Psychiatric exam: PRESENT: normal mood Results Laboratory Results: 03/22/19 12:36 03/22/19 12:36 03/22/19 03/22/19 03/22/19 12:36 12:36 12:36 WBC 5.8 RBC 3.93 Hgb 12.4 Hct 36.5 MCV 93 MCH 31.7 MCHC 34.1 RDW 17.4 H Plt Count 68 L Seg Neutrophils % Not Reportable Lymphocytes % Not Reportable Monocytes % Not Reportable Eosinophils % Not Reportable Basophils % Not Reportable Absolute Neutrophils Not Reportable Absolute Lymphocytes Not Reportable Absolute Monocytes Not Reportable Absolute Eosinophils Not Reportable Absolute Basophils Not Reportable VBG pH 7.55 H VBG pCO2 29.3 L VBG HCO3 24.8 VBG Base Excess 3.8 Sodium 132.0 L Potassium 3.9 Chloride 99 Carbon Dioxide 23 Anion Gap 10 BUN 10 Creatinine 0.55 Est GFR ( Amer) > 60 Est GFR (Non-Af Amer) > 60 Glucose 100 Lactic Acid Calcium 9.5 Total Bilirubin 1.6 H AST 55 H ALT 45 Alkaline Phosphatase 76 Total Protein 6.7 Albumin 3.5 03/22/19 12:36 WBC RBC Hgb Hct MCV MCH MCHC RDW Plt Count Seg Neutrophils % Lymphocytes % Monocytes % Eosinophils % Basophils % Absolute Neutrophils Absolute Lymphocytes Absolute Monocytes Absolute Eosinophils Absolute Basophils VBG pH VBG pCO2 VBG HCO3 VBG Base Excess Sodium Potassium Chloride Carbon Dioxide Anion Gap BUN Creatinine Est GFR ( Amer) Est GFR (Non-Af Amer) Glucose Lactic Acid 1.8 Calcium Total Bilirubin AST ALT Alkaline Phosphatase Total Protein Albumin 03/22/19 12:36 Troponin I < 0.012 Impressions: Chest X-Ray 03/22/19 11:56 IMPRESSION: NO ACUTE FINDINGS. Chest/Abdomen CTA 03/22/19 11:57 IMPRESSION: No emboli visualized in the main pulmonary arteries or the segmental branches.Small scattered areas of subsegmental atelectasis. Postsurgical changes in the right chest wall. Scattered calcified lymph nodes in the left axilla.Heterogeneous enlarged thyroid, 12 mm hypodense nodule in the right lobe. Assessment and Plan - Diagnosis (1) Intractable nausea and vomiting Qualifiers: Vomiting type: unspecified Qualified Code(s): R11.2 - Nausea with vomiting, unspecified Is this a current diagnosis for this admission?: Yes Plan: Patient has been started on antiemetic, and hydration. (2) Dehydration Is this a current diagnosis for this admission?: Yes Plan: Due to #1. Patient will be hydrated adequately. (3) Tachycardia Is this a current diagnosis for this admission?: Yes Plan: Due to dehydration (4) Stage IV breast cancer in female Is this a current diagnosis for this admission?: Yes Plan: Management per her primary oncologist.
[2019-03-22] MEDS ORDERED: FENTANYL 50 MCG/HR PATCH.TD72 TD ONE ×2 (16:00→18:15)
[2019-03-22 16:29] LABS: APPEARANCE,URINE CLEAR; BILIRUBIN,URINE NEGATIVE (NEGATIVE); COLOR,URINE YELLOW; GLUCOSE, URINE NEGATIVE (NEGATIVE); KETONES,URINE TRACE mg/dL (NEGATIVE); LEUKOCYTE ESTERASE,URINE NEGATIVE (NEGATIVE); NITRITE,URINE NEGATIVE (NEGATIVE); PROTEIN,URINE NEGATIVE (NEGATIVE); URINE SPECIFIC GRAVITY 1.027
[2019-03-22] MEDS ORDERED: DRONABINOL 2.5 MG CAPSULE PO ONE (17:00)
--- NOTE | 2019-03-22 17:06 | EKG REPORT ---
SEVERITY:- ABNORMAL ECG - SINUS TACHYCARDIA BORDERLINE T WAVE ABNORMALITIES RA ENLARGEMENT. : Confirmed by: Rick Armendariz MD 22-Mar-2019 17:06:06
[2019-03-22] MEDS: OXYCODONE-ACETAMINOPHEN 5-325 MG TABLET PO PRN (17:15)
[2019-03-22] MEDS: RINGERS SOLUTION,LACTATED 1,000 ML IV PRN (17:19)
[2019-03-22] MEDS: ENOXAPARIN SODIUM INJ 40 MG/0.4 ML DISP.SYRIN SUBCUT SCH (18:12)
[2019-03-22] MEDS ORDERED: DILTIAZEM HCL 60 MG TABLET ONE (18:37)
[2019-03-22] MEDS ORDERED: DILTIAZEM HCL 60 MG TABLET PO ONE (18:45)
[2019-03-22] MEDS ORDERED: MIRTAZAPINE 15 MG TABLET PO SCH (22:00)
[2019-03-22] MEDS ORDERED: MORPHINE SULFATE SR 30 MG TABLET PO SCH (22:00)
[2019-03-23] MEDS: RINGERS SOLUTION,LACTATED 1,000 ML IV PRN ×2 (01:28→13:38)
[2019-03-23] MEDS: OXYCODONE-ACETAMINOPHEN 5-325 MG TABLET PO PRN ×2 (04:57→13:35)
[2019-03-23 05:47] LABS: HEMATOCRIT 31.1 % (36.0-47.0); HEMOGLOBIN 10.7 g/dL (12.0-15.5); MEAN CORPUSCULAR HEMOGLOBIN 32.1 pg (27.0-33.4); MEAN CORPUSCULAR HGB CONC 34.5 g/dL (32.0-36.0); MEAN CORPUSCULAR VOLUME 93 fl (80-97); RED BLOOD COUNT 3.34 10^6/uL (3.72-5.28); RED CELL DISTRIBUTION WIDTH 17.3 % (11.5-14.0)
[2019-03-23 05:59] LABS: ANION GAP 6 (5-19); BLOOD UREA NITROGEN 6 mg/dL (7-20); CALCIUM 8.7 mg/dL (8.4-10.2); CARBON DIOXIDE 26 mmol/L (22-30); CHLORIDE 104 mmol/L (98-107); GLUCOSE 105 mg/dL (75-110); SODIUM 135.5 mmol/L (137-145)
[2019-03-23] MEDS ORDERED: PANTOPRAZOLE SODIUM 40 MG TABLET.DR PO SCH (06:00)
[2019-03-23 06:33] LABS: PLATELET COUNT 51 10^3/uL (150-450)
[2019-03-23 06:34] LABS: WHITE BLOOD COUNT 1.6 10^3/uL (4.0-10.5)
[2019-03-23] MEDS ORDERED: LORAZEPAM 1 MG TABLET PO PRN (08:12)
[2019-03-23] MEDS ORDERED: PROCHLORPERAZINE MALEATE 10 MG TABLET PO PRN (08:12)
[2019-03-23 09:31] LABS: ABSOLUTE LYMPHOCYTES# (MANUAL) 0.6 10^3/uL (0.5-4.7); ABSOLUTE MONOCYTES # (MANUAL) 0.1 10^3/uL (0.1-1.4); ABSOLUTE NEUTROPHILS# (MANUAL) 0.8 10^3/uL (1.7-8.2); ANISOCYTOSIS 2+; BASOPHILS % (MANUAL) 0 % (0-2); EOSINOPHILS % (MANUAL) 8 % (0-6); HYPOCHROMASIA SLIGHT; LYMPHOCYTES % (MANUAL) 36 % (13-45); MONOCYTES % (MANUAL) 4 % (3-13); PLATELET COMMENT DECREASED; POIKILOCYTOSIS 2+; SEGMENTED NEUTROPHILS % (MAN) 52 % (42-78); TEAR DROP CELLS 2+; TOTAL CELLS COUNTED 50; TOXIC GRANULATION SLIGHT
[2019-03-23] MEDS: ENOXAPARIN SODIUM INJ 40 MG/0.4 ML DISP.SYRIN SUBCUT SCH (09:42)
[2019-03-23] MEDS ORDERED: (PENDING PHARMACY ID) (Calcium Carbonate/Vitamin D3 [Calcium 600 + Vit D 400 Tablet] 1 TAB PO SCH (10:00)
[2019-03-23] MEDS ORDERED: CALCIUM CARBONATE 250 MG/VITAMIN D3 125 UNIT TABLET PO SCH (10:00)
[2019-03-23] MEDS ORDERED: (PENDING PHARMACY ID) (Megestrol Acetate [Megestrol Acetate] 800 MG) PO SCH (10:00)
[2019-03-23] MEDS ORDERED: MEGESTROL ACETATE SUSP 400 MG/10 ML UDCUP PO SCH (10:00)
[2019-03-23 10:47] LABS: ABSOLUTE EOSINOPHILS # (AUTO) 0.1 10^3/uL (0.0-0.6); ABSOLUTE LYMPHOCYTES (AUTO) 0.4 10^3/uL (0.5-4.7); ABSOLUTE NEUT (AUTO) 0.4 10^3/uL (1.7-8.2); BASOPHILS % (AUTO) 1.9 % (0-2); EOSINOPHILS % (AUTO) 12.1 % (0-6); HEMATOCRIT 28.8 % (36.0-47.0); HEMOGLOBIN 9.9 g/dL (12.0-15.5); LYMPHOCYTES % (AUTO) 39.6 % (13-45); MEAN CORPUSCULAR HEMOGLOBIN 32.2 pg (27.0-33.4); MEAN CORPUSCULAR HGB CONC 34.5 g/dL (32.0-36.0); MEAN CORPUSCULAR VOLUME 93 fl (80-97); MONOCYTES % (AUTO) 3.5 % (3-13); RED BLOOD COUNT 3.09 10^6/uL (3.72-5.28); RED CELL DISTRIBUTION WIDTH 17.3 % (11.5-14.0); SEGMENTED NEUTROPHILS % (AUTO) 42.9 % (42-78); TOTAL CELLS COUNTED % (AUTO) 100 %
[2019-03-23 11:45] LABS: PLATELET COUNT 49 10^3/uL (150-450)
[2019-03-23 12:15] LABS: ANISOCYTOSIS 1+; OVALOCYTES 1+; PLATELET COMMENT DECREASED; POIKILOCYTOSIS 1+
--- NOTE | 2019-03-23 13:10 | PDOC PROGRESS REPORT ---
Subjective Progress Note for:: 03/23/19 Subjective:: CIRA BARCENAS is a 63 year old black female patient with past medical history of stage IV breast CA status post surgery and currently has been on chemo her last chemo was 5 days ago who was admitted 03/22/2019 forIntractable nausea and vomiting, intractable pain, and dehydration secondary to recent chemotherapy. Patient was seen on morning rounds with multiple family members present. She reports that she is feeling well today; chest wall pain related to breast cancer is well controlled and her nausea and vomiting have resolved. She denies fever, chills, palpitations, orthopnea, abdominal pain, nausea, vomiting, constipation and diarrhea. Patient's daughter does report that the patient has seemed to have short/shallow respirations; patient does endorse mild dyspnea with activity. They have no other questions or concerns at this time. Unfortunately the patient's a.m. lab work revealed pancytopenia with an ANC WC 1.0, of 0.8. Significant change from yesterday prompted repeat evaluation to confirm results; Hgb 9.9/HCT 28.8, platelet 49, ANC 0.4. Patient is placed on protective precautions and Dr. Dos Santos is consulted. No concerns per nursing. Reason For Visit: INTRACTABLE NAUSEA AND VOMITING Physical Exam Vital Signs: Temp Pulse Resp BP Pulse Ox 98.6 F 100 18 121/67 100 03/23/19 12:42 03/23/19 12:42 03/23/19 12:42 03/23/19 12:42 03/23/19 12:42 Intake & Output 03/22/19 03/23/19 03/24/19 06:59 06:59 06:59 Intake Total 3118 Balance 3118 Weight 70 kg General appearance: PRESENT: no acute distress, cooperative, thin, well- developed, well-nourished Head exam: PRESENT: atraumatic, normocephalic Eye exam: PRESENT: conjunctiva pink, EOMI, PERRLA. ABSENT: scleral icterus Mouth exam: PRESENT: moist, tongue midline Teeth exam: PRESENT: poor dentation Neck exam: ABSENT: carotid bruit, JVD, lymphadenopathy, thyromegaly Respiratory exam: PRESENT: clear to auscultation arlet, decreased breath sounds - Throughout; poor inspiratory effort related to chest wall pain, symmetrical, unlabored. ABSENT: rales, rhonchi, wheezes Cardiovascular exam: PRESENT: RRR, +S1, +S2. ABSENT: diastolic murmur, rubs, systolic murmur Pulses: PRESENT: normal dorsalis pedis pul Vascular exam: PRESENT: normal capillary refill GI/Abdominal exam: PRESENT: normal bowel sounds, soft. ABSENT: distended, guarding, mass, organolmegaly, rebound, tenderness Rectal exam: PRESENT: deferred Extremities exam: PRESENT: full ROM. ABSENT: calf tenderness, clubbing, pedal edema Neurological exam: PRESENT: alert, awake, oriented to person, oriented to place, oriented to time, oriented to situation, CN II-XII grossly intact. ABSENT: motor sensory deficit Psychiatric exam: PRESENT: appropriate affect, normal mood. ABSENT: homicidal ideation, suicidal ideation Skin exam: PRESENT: dry, warm. ABSENT: cyanosis, rash Results Laboratory Results: 03/23/19 10:00 03/23/19 05:25 03/22/19 03/22/19 03/22/19 12:36 12:36 12:36 WBC 5.8 RBC 3.93 Hgb 12.4 Hct 36.5 MCV 93 MCH 31.7 MCHC 34.1 RDW 17.4 H Plt Count 68 L Seg Neutrophils % Not Reportable Lymphocytes % Not Reportable Monocytes % Not Reportable Eosinophils % Not Reportable Basophils % Not Reportable Absolute Neutrophils Not Reportable Absolute Lymphocytes Not Reportable Absolute Monocytes Not Reportable Absolute Eosinophils Not Reportable Absolute Basophils Not Reportable VBG pH 7.55 H VBG pCO2 29.3 L VBG HCO3 24.8 VBG Base Excess 3.8 Sodium 132.0 L Potassium 3.9 Chloride 99 Carbon Dioxide 23 Anion Gap 10 BUN 10 Creatinine 0.55 Est GFR ( Amer) > 60 Est GFR (Non-Af Amer) > 60 Glucose 100 Lactic Acid Calcium 9.5 Magnesium Total Bilirubin 1.6 H AST 55 H ALT 45 Alkaline Phosphatase 76 Total Protein 6.7 Albumin 3.5 Urine Color Urine Appearance Urine pH Ur Specific [place] Urine Protein Urine Glucose (UA) Urine Ketones Urine Blood Urine Nitrite Ur Leukocyte Esterase Urine WBC (Auto) Urine RBC (Auto) 03/22/19 03/22/19 03/23/19 12:36 16:10 05:25 WBC 1.6 L D RBC 3.34 L Hgb 10.7 L Hct 31.1 L MCV 93 MCH 32.1 MCHC 34.5 RDW 17.3 H Plt Count 51 L Seg Neutrophils % Not Reportable Lymphocytes % Not Reportable Monocytes % Not Reportable Eosinophils % Not Reportable Basophils % Not Reportable Absolute Neutrophils Not Reportable Absolute Lymphocytes Not Reportable Absolute Monocytes Not Reportable Absolute Eosinophils Not Reportable Absolute Basophils Not Reportable VBG pH VBG pCO2 VBG HCO3 VBG Base Excess Sodium Potassium Chloride Carbon Dioxide Anion Gap BUN Creatinine Est GFR ( Amer) Est GFR (Non-Af Amer) Glucose Lactic Acid 1.8 Calcium Magnesium Total Bilirubin AST ALT Alkaline Phosphatase Total Protein Albumin Urine Color YELLOW Urine Appearance CLEAR Urine pH 6.0 Ur Specific [place] 1.027 Urine Protein NEGATIVE Urine Glucose (UA) NEGATIVE Urine Ketones TRACE H Urine Blood SMALL H Urine Nitrite NEGATIVE Ur Leukocyte Esterase NEGATIVE Urine WBC (Auto) 3 Urine RBC (Auto) 0 03/23/19 03/23/19 03/23/19 05:25 05:25 10:00 WBC Cancelled 1.0 L* RBC Cancelled 3.09 L Hgb Cancelled 9.9 L Hct Cancelled 28.8 L MCV Cancelled 93 MCH Cancelled 32.2 MCHC Cancelled 34.5 RDW Cancelled 17.3 H Plt Count Cancelled 49 L Seg Neutrophils % Cancelled 42.9 Lymphocytes % Cancelled 39.6 Monocytes % Cancelled 3.5 Eosinophils % Cancelled 12.1 H Basophils % Cancelled 1.9 Absolute Neutrophils Cancelled 0.4 L Absolute Lymphocytes Cancelled 0.4 L Absolute Monocytes Cancelled 0.0 L Absolute Eosinophils Cancelled 0.1 Absolute Basophils Cancelled 0.0 VBG pH VBG pCO2 VBG HCO3 VBG Base Excess Sodium 135.5 L Potassium 4.0 Chloride 104 Carbon Dioxide 26 Anion Gap 6 BUN 6 L Creatinine 0.36 L Est GFR ( Amer) > 60 Est GFR (Non-Af Amer) > 60 Glucose 105 Lactic Acid Calcium 8.7 Magnesium 1.7 Total Bilirubin AST ALT Alkaline Phosphatase Total Protein Albumin Urine Color Urine Appearance Urine pH Ur Specific [place] Urine Protein Urine Glucose (UA) Urine Ketones Urine Blood Urine Nitrite Ur Leukocyte Esterase Urine WBC (Auto) Urine RBC (Auto) 03/22/19 03/22/19 12:36 19:54 Troponin I < 0.012 < 0.012 Impressions: Chest X-Ray 03/22/19 11:56 IMPRESSION: NO ACUTE FINDINGS. Chest/Abdomen CTA 03/22/19 11:57 IMPRESSION: No emboli visualized in the main pulmonary arteries or the segmental branches.Small scattered areas of subsegmental atelectasis. Postsurgical changes in the right chest wall. Scattered calcified lymph nodes in the left axilla.Heterogeneous enlarged thyroid, 12 mm hypodense nodule in the right lobe. Assessment and Plan - Diagnosis (1) Intractable nausea and vomiting Qualifiers: Vomiting type: unspecified Qualified Code(s): R11.2 - Nausea with vomiting, unspecified Is this a current diagnosis for this admission?: Yes Plan: Resolved. Continue IV fluids. Continue Marinol, PPI, and as needed Compazine and Zofran. (2) Pancytopenia Is this a current diagnosis for this admission?: Yes Plan: Likely secondary to recent chemotherapy; last dose was 03/18/2019. ANC is 0.4. Patient is afebrile; no evidence of infectious process at this time. Urine culture is negative at 1 day. Blood cultures are pending. Patient is placed in protective precautions. Patient's established oncologist, Dr. Dos Santos, is consulted. No indications for antibiotic's at this time. (3) Dehydration Is this a current diagnosis for this admission?: Yes Plan: Due to #1. Resolved. Continue gentle IV fluids. (4) Stage IV breast cancer in female Is this a current diagnosis for this admission?: Yes Plan: Management per her primary oncologist; Dr. Dos Santos is consulted. (5) Tachycardia Is this a current diagnosis for this admission?: Yes Plan: Secondary to dehydration; significantly improved. Heart rate is down from 130 to 100. Blood pressure is acceptable. Continue IV fluids and remaining management as outlined above. - Time Time Spent with patient: 25-34 minutes Medications reviewed and adjusted accordingly: Yes Anticipated discharge: Home
[2019-03-23 13:43] LABS: PATH REVIEW PATHOLOGIST REVIEWED
[2019-03-23 18:29] VITALS: BP 121/67
[2019-03-23] MEDS ORDERED: AMITRIPTYLINE HCL 25 MG TABLET PO SCH (22:00)
[2019-03-25] MEDS ORDERED: FENTANYL 50 MCG/HR PATCH.TD72 TD SCH (10:00)
--- NOTE | 2019-03-25 11:51 | PDOC DISCHARGE SUMMARY ---
General - Admit/Disc Date/PCP Admission Date/Primary Care Provider: 03/22/19 14:58 Discharge Date: 03/23/19 - Discharge Diagnosis (1) Intractable nausea and vomiting Is this a current diagnosis for this admission?: Yes Summary: Resolved. Patient was supported with IV fluids, Marinol, PPI, and as needed Compazine and Zofran. Now tolerating a regular diet. (2) Pancytopenia Is this a current diagnosis for this admission?: Yes Summary: Likely secondary to recent chemotherapy; last dose was 03/18/2019. ANC is 0.4. Patient is afebrile; no evidence of infectious process at this time. Urine culture is negative at 1 day. Blood cultures are pending. Patient was placed in protective precautions and educated on importance of continuing precautions post-discharge. Patient's established oncologist, Dr. Dos Santos, is consulted. Spoke w/ Dr. Dos Santos by phone; recommended discharge to home with next day follow up in the office for repeat lab work and IVF. No indications for antibiotic's at this time. (3) Dehydration Is this a current diagnosis for this admission?: Yes Summary: Due to #1. Resolved. (4) Stage IV breast cancer in female Is this a current diagnosis for this admission?: Yes Summary: Management per her primary oncologist; Dr. Dos Santos Follow up appointment in office set for tomorrow at 1 pm. (5) Tachycardia Is this a current diagnosis for this admission?: Yes Summary: Secondary to dehydration; significantly improved. Heart rate is down from 130 to 100. Blood pressure is acceptable. - Additional Information Discharge Diet: As Tolerated Discharge Activity: Activity As Tolerated, Balance Activity w/Rest Prescriptions: Fentanyl [Duragesic 50 Mcg/Hr Transdermal Patch] 1 each TD Q3DAYS #3 patch.[id number] Home Medications: Amitriptyline HCl [Elavil 25 mg Tablet] 25 mg PO QHS 03/22/19 Calcium Carbonate/Vitamin D3 [Calcium 600 + Vit D 400 Tablet] 1 tab PO DAILY 03/22/19 Cholecalciferol (Vitamin D3) [Vitamin D3 1000 Unit Tablet] 1,000 unit PO DAILY 03/22/19 Cyanocobalamin (Vitamin B-12) [Vitamin B-12 1000 mcg Tablet] 1 tab PO DAILY 03/22/19 Lorazepam [Ativan 1 mg Tablet] 1 mg PO Q8HP PRN 03/22/19 Megestrol Acetate 800 mg PO DAILY 03/22/19 Mupirocin [Bactroban 2% Ointment 22 gm] 1 applic TP TID 03/22/19 Ondansetron HCl [Zofran 8 mg Tablet] 8 mg PO ASDIR PRN 03/22/19 Oxycodone HCl/Acetaminophen [Percocet 5-325 mg Tablet] 1 tab PO Q8HP PRN 03/22/19 Prochlorperazine Maleate [Compazine 10 mg Tablet] 10 mg PO Q6HP PRN 03/22/19 Vitamin E (Dl, Acetate) [Vitamin E 400 Unit Capsule] 400 unit PO DAILY 03/22/19 Fentanyl [Duragesic 50 Mcg/Hr Transdermal Patch] 1 each TD Q3DAYS #3 patch.td72 03/23/19 History of Present Illness History of Present Illness: Per H&P by Dr. Jacobs: CIRA BRACENAS is a 63 year old black female patient with past medical history of stage IV breast CA status post surgery and currently has been on chemo her last chemo was 5 days ago. Chief complaint of muscle spasm, nausea and vomiting of ingested material. The muscle spasm and pain radiated to her back to her chest and down to her post lower extremities. She has been taking her oxycodone at home to no avail. In ER patient found to be tachycardic with heart rate of 136. Blood works are unremarkable except mild hyponatremia with sodium of 132. She denies any fevers, chills, cough, diarrhea, urinary complaints, dizziness, headache, seizure. Patient is going to be admitted for observation to telemetry floor. For her pain she has been started on fentanyl patch oxycodone and long-acting morphine sulfate 30 mg every 12 hours. She is going to be hydrated cautiously and she was started on Marinol and Remeron to boost her appetite. Physical Exam Vital Signs: Temp Pulse Resp BP Pulse Ox 99.0 F 129 H 16 121/67 97 03/23/19 18:28 03/23/19 18:28 03/23/19 18:28 03/23/19 18:28 03/23/19 18:28 Intake & Output 03/24/19 03/25/19 03/26/19 06:59 06:59 06:59 Intake Total 1000 Balance 1000 General appearance: PRESENT: no acute distress, cooperative, thin, well- developed, well-nourished Head exam: PRESENT: atraumatic, normocephalic Eye exam: PRESENT: conjunctiva pink, EOMI, PERRLA. ABSENT: scleral icterus Ear exam: PRESENT: normal external ear exam Mouth exam: PRESENT: moist, tongue midline Teeth exam: PRESENT: poor dentation Neck exam: ABSENT: carotid bruit, JVD, lymphadenopathy, thyromegaly Respiratory exam: PRESENT: clear to auscultation arlet, decreased breath sounds - Throughout; poor inspiratory effort related to chest wall pain, symmetrical, unlabored. ABSENT: rales, rhonchi, wheezes Cardiovascular exam: PRESENT: RRR. ABSENT: diastolic murmur, rubs, systolic murmur Pulses: PRESENT: normal dorsalis pedis pul Vascular exam: PRESENT: normal capillary refill GI/Abdominal exam: PRESENT: normal bowel sounds, soft. ABSENT: distended, guarding, mass, organolmegaly, rebound, tenderness Rectal exam: PRESENT: deferred Extremities exam: PRESENT: full ROM. ABSENT: calf tenderness, clubbing, pedal edema Neurological exam: PRESENT: alert, awake, oriented to person, oriented to place, oriented to time, oriented to situation, CN II-XII grossly intact. ABSENT: motor sensory deficit Psychiatric exam: PRESENT: appropriate affect, normal mood. ABSENT: homicidal ideation, suicidal ideation Skin exam: PRESENT: dry, intact, warm. ABSENT: cyanosis, rash Results Laboratory Results: 03/23/19 10:00 03/23/19 05:25 03/22/19 16:10 Catheterized Urine Urine Culture - Final NO GROWTH 2 DAYS 03/22/19 03/22/19 12:36 19:54 Troponin I < 0.012 < 0.012 Impressions: Chest X-Ray 03/22/19 11:56 IMPRESSION: NO ACUTE FINDINGS. Chest/Abdomen CTA 03/22/19 11:57 IMPRESSION: No emboli visualized in the main pulmonary arteries or the segmental branches.Small scattered areas of subsegmental atelectasis. Postsurgical changes in the right chest wall. Scattered calcified lymph nodes in the left axilla.Heterogeneous enlarged thyroid, 12 mm hypodense nodule in the right lobe. Qualifiers - * PATIENT BEING DISCHARGED WITH ANY OF THE FOLLOWING DIAGNOSIS: No Acute Heart Failure - Is this a Heart Failure Patient?: No Plan Discharge Plan: Follow up with Dr. Dos Santos tomorrow at 1 pm. Avoid public areas and persons who are ill. Wear a mask when in public. Time Spent: Greater than 30 Minutes
== END 2019-03-23 18:58 | disposition home or self-care (01) ==
LOC: ER 10:57 → EH 14:58 → 5 17:10
PROVIDERS: ADMIT Internal Medicine; ATTEND Internal Medicine
DX: C50.919 Malignant neoplasm of unspecified site of unspecified female breast (principal); R11.2 Nausea with vomiting, unspecified; D61.818 Other pancytopenia; E86.0 Dehydration; R00.0 Tachycardia, unspecified; R25.2 Cramp and spasm; R07.89 Other chest pain; E87.1 Hypo-osmolality and hyponatremia; R06.00 Dyspnea, unspecified; M19.90 Unspecified osteoarthritis, unspecified site; R91.8 Other nonspecific abnormal finding of lung field; Z79.899 Other long term (current) drug therapy; Z92.21 Personal history of antineoplastic chemotherapy; Z90.10 Acquired absence of unspecified breast and nipple
CPT/HCPCS: 93005; 36591; 99285; 96361; 96374; 96375; 36415 ×2; 87040; 87086; 83735; 85025 ×2; 80048; 80053; 81001; 84484; 82803; 83605; 71045; 71275; 94799; 93010; 94667; G0378 ×3; A9270; J3490 ×7; J1170; J2405; J7030; J7120 ×2; J1642

== ENCOUNTER 2019-03-26 10:57 | Inpatient (IN) | payer MEDICAID ==
[2019-03-26] MEDS ORDERED: ASPIRIN 81 MG TABLET, CHEWABLE PO ONE (11:19)
[2019-03-26 11:41] LABS: HEMATOCRIT 30.2 % (36.0-47.0); HEMOGLOBIN 10.8 g/dL (12.0-15.5); MEAN CORPUSCULAR HEMOGLOBIN 32.1 pg (27.0-33.4); MEAN CORPUSCULAR HGB CONC 35.8 g/dL (32.0-36.0); MEAN CORPUSCULAR VOLUME 90 fl (80-97); RED BLOOD COUNT 3.36 10^6/uL (3.72-5.28); RED CELL DISTRIBUTION WIDTH 17.3 % (11.5-14.0); WHITE BLOOD COUNT 4.4 10^3/uL (4.0-10.5)
[2019-03-26 11:56] LABS: ALANINE AMINOTRANSFERASE 33 U/L (9-52); ALBUMIN 3.4 g/dL (3.5-5.0); ALKALINE PHOSPHATASE 57 U/L (38-126); ANION GAP 8 (5-19); ASPARTATE AMINO TRANSFERASE 31 U/L (14-36); BILIRUBIN,DIRECT 0.4 mg/dL (0.0-0.4); BLOOD UREA NITROGEN 2 mg/dL (7-20); CALCIUM 9.6 mg/dL (8.4-10.2); CARBON DIOXIDE 26 mmol/L (22-30); CHLORIDE 98 mmol/L (98-107); CREATINE KINASE < 20 U/L (30-135); GLUCOSE 93 mg/dL (75-110); POTASSIUM 3.4 mmol/L (3.6-5.0); SODIUM 132.2 mmol/L (137-145); TOTAL PROTEIN 6.6 g/dL (6.3-8.2)
[2019-03-26 12:09] LABS: PLATELET COUNT 82 10^3/uL (150-450)
[2019-03-26 12:11] LABS: TROPONIN I < 0.012 ng/mL
[2019-03-26 12:16] LABS: ABSOLUTE LYMPHOCYTES# (MANUAL) 1.4 10^3/uL (0.5-4.7); ABSOLUTE MONOCYTES # (MANUAL) 0.6 10^3/uL (0.1-1.4); BAND NEUTROPHILS % (MANUAL) 2 % (3-5); BASOPHILS % (MANUAL) 0 % (0-2); EOSINOPHILS % (MANUAL) 1 % (0-6); LYMPHOCYTES % (MANUAL) 30 % (13-45); METAMYELOCYTES % (MANUAL) 1 % (0); MONOCYTES % (MANUAL) 14 % (3-13); SEGMENTED NEUTROPHILS % (MAN) 50 % (42-78); TOTAL CELLS COUNTED 100
[2019-03-26 12:18] LABS: ANISOCYTOSIS 1+; OVALOCYTES SLIGHT; POIKILOCYTOSIS SLIGHT; TEAR DROP CELLS SLIGHT
[2019-03-26 12:19] LABS: PLATELET COMMENT DECREASED
--- NOTE | 2019-03-26 12:29 | RADIOLOGY REPORT (SQ) ---
EXAM DESCRIPTION: CHEST SINGLE VIEW COMPLETED DATE/TIME: 03/26/2019 11:53 am REASON FOR STUDY: chest pain COMPARISON: 03/22/2019 EXAM PARAMETERS: NUMBER OF VIEWS: One view. TECHNIQUE: Single frontal radiographic view of the chest acquired. RADIATION DOSE: NA LIMITATIONS: None. FINDINGS: LUNGS AND PLEURA: No opacities, masses or pneumothorax. No pleural effusion. MEDIASTINUM AND HILAR STRUCTURES: No masses. Contour normal. HEART AND VASCULAR STRUCTURES: Heart normal in size. Normal vasculature. BONES: No acute findings. HARDWARE: Injection port on the left. OTHER: No other significant finding. IMPRESSION: NO ACUTE RADIOGRAPHIC FINDING IN THE CHEST. TECHNICAL DOCUMENTATION: JOB ID: [id number] [employer]- All Rights Reserved Reading location - IP/workstation name: [email or web address]
--- NOTE | 2019-03-26 12:55 | EKG REPORT ---
SEVERITY:- OTHERWISE NORMAL ECG - SINUS TACHYCARDIA : Confirmed by: Rick Armendariz MD 26-Mar-2019 12:54:04
--- NOTE | 2019-03-26 13:16 | ER Document Report ---
Entered by GUILLERMO ASHTON SCRIBE 03/26/19 1143 Acting as scribe for:KIRK WILLS MD ED General - General Chief Complaint: Chest Pain Stated Complaint: CHEST PAIN Time Seen by Provider: 03/26/19 11:27 Primary Care Provider: ESA GONZALEZ MD [Primary Care Provider] - Follow up as needed Mode of Arrival: Ambulatory Information source: Patient Notes: Patient is a 63 year old female with right breast cancer presents to the emergency department complaining of multiple symptoms including shortness of breath, chest pain, dizziness, headaches, abdominal pain, back pain and swelling of the hands and feet. Patient states these symptoms were onset approximately 1 week ago. She also complains of chronic chills. Patient was admitted to the hospitalist service on 03/22/19 complaining of similar symptoms and was discharged on 03/23/19. On that admission, the patient's lab work was unremarkable other than a venous blood gas that suggested hyperventilation. A CTA of the chest abdomen pelvis did not show acute findings. She did have a persistent tachycardia throughout most of that today admission. Patient has seen Dr. Dos Santos in the office on 03/24 and 03/25/2019 at which time she received IV fluids on each visit for dehydration. The patient states that she has been drinking fluids, and that she is making plenty of urine. Patient's PCP is Dr. Gonzalez. TRAVEL OUTSIDE OF THE [place] IN LAST 30 DAYS: No - Related Data Allergies/Adverse Reactions: No Known Allergies Allergy (Verified 03/26/19 10:57) Past Medical History - General Information source: Patient - Social History Smoking Status: Never Smoker Cigarette use (# per day): No Chew tobacco use (# tins/day): No Smoking Education Provided: No Frequency of alcohol use: None Drug Abuse: None Lives with: Family Family History: Reviewed & Not Pertinent, DM Malignancy Medical History: Reports: Hx Breast Cancer Musculoskeletal Medical History: Reports Hx Arthritis Past Surgical History: Reports: Hx Mastectomy - right Review of Systems - Review of Systems Constitutional: No symptoms reported, See HPI EENT: No symptoms reported Cardiovascular: See HPI, Chest pain, Dizziness Respiratory: See HPI, Short of breath Gastrointestinal: See HPI, Abdominal pain Genitourinary: No symptoms reported Female Genitourinary: No symptoms reported Musculoskeletal: See HPI, Back pain Skin: No symptoms reported Hematologic/Lymphatic: No symptoms reported Neurological/Psychological: See HPI, Headaches -: Yes All other systems reviewed and negative Physical Exam - Vital signs Vitals: Temp Pulse Resp BP Pulse Ox 98.1 F 135 H 16 88/50 L 100 03/26/19 11:15 03/26/19 11:15 03/26/19 11:15 03/26/19 11:15 03/26/19 11:15 - Notes Notes: GENERAL: Alert, shivering, interacts well. No acute distress. HEAD: Normocephalic, atraumatic. Bald. EYES: Pupils equal, round, and reactive to light. Extraocular movements intact. ENT: Oral mucosa moist, tongue midline. NECK: Full range of motion. Supple. Trachea midline. LUNGS: Clear to auscultation bilaterally, no wheezes, rales, or rhonchi. No respiratory distress. HEART: Tachycardic. No murmurs, gallops, or rubs. ABDOMEN: Soft, non-tender. Non-distended. Bowel sounds present in all 4 quadrants. No guarding, rigidity, or rebound. EXTREMITIES: Moves all 4 extremities spontaneously. Trace edema to the lower extremity. No cyanosis. NEUROLOGICAL: Alert and oriented x3. Normal speech. PSYCH: Normal affect, normal mood. SKIN: Warm, dry, normal turgor. No rashes or lesions noted. Course - Re-evaluation Re-evalutation: 03/26/19 15:[address] Gonzalez. He reports he saw the patient in the office earlier today and had told her to go to the oncology office and get a Procrit shot and IV fluids. He states it appears the decided to come to the emergency room instead. He agrees to make her a 23-hour observation for postural tachycardia. - Vital Signs Vital signs: Temp Pulse Resp BP Pulse Ox 98.1 F 135 H 20 131/68 H 99 03/26/19 11:15 03/26/19 11:15 03/26/19 14:42 03/26/19 14:00 03/26/19 14:01 - Laboratory Result Diagrams: 03/26/19 11:26 03/26/19 11:26 Laboratory results interpreted by me: 03/26/19 03/26/19 03/26/19 11:26 11:26 14:00 RBC 3.36 L Hgb 10.8 L Hct 30.2 L RDW 17.3 H Plt Count 82 L Band Neutrophils % 2 L Monocytes % (Manual) 14 H Metamyelocytes % 1 H Sodium 132.2 L Potassium 3.4 L BUN 2 L Creatinine 0.42 L Creatine Kinase < 20 L Albumin 3.4 L Urine Protein 30 H Urine Ketones 20 H Urine Blood MODERATE H - Diagnostic Test Radiology reviewed: Image reviewed, Reports reviewed - Chest x-ray is unremarkable. - EKG Interpretation by Me EKG shows normal: Sinus rhythm, [place], Intervals, QRS Complexes, ST-T Waves Rate: Tachycardia - 126 - Consults Dr. Gonzalez Time consulted: 15:20 Consulted provider: will see as inpatient Discharge - Discharge Clinical Impression: Tachycardia, Stage IV breast cancer in female Condition: Stable Disposition: ADMITTED OBSERVATION Admitting Provider: Patrick Unit Admitted: Telemetry Referrals: ESA GONZALEZ MD [Primary Care Provider] - Follow up as needed Scribe Attestation: 03/26/19 13:21 I personally performed the services described in the documentation, reviewed and edited the documentation which was dictated to the scribe in my presence, and it accurately records my words and actions. I personally performed the services described in the documentation, reviewed and edited the documentation which was dictated to the scribe in my presence, and it accurately records my words and actions.
[2019-03-26 14:44] LABS: APPEARANCE,URINE CLEAR; BILIRUBIN,URINE NEGATIVE (NEGATIVE); COLOR,URINE YELLOW; GLUCOSE, URINE NEGATIVE (NEGATIVE); KETONES,URINE 20 mg/dL (NEGATIVE); LEUKOCYTE ESTERASE,URINE NEGATIVE (NEGATIVE); NITRITE,URINE NEGATIVE (NEGATIVE); PROTEIN,URINE 30 mg/dL (NEGATIVE); URINE SPECIFIC GRAVITY 1.006; UROBILINOGEN,URINE NEGATIVE mg/dL (<2.0)
[2019-03-26] MEDS ORDERED: OXYCODONE-ACETAMINOPHEN 5-325 MG TABLET PO ONE (15:34)
[2019-03-26] MEDS ORDERED: FENTANYL 12 MCG/HR PATCH.TD72 TD ONE (18:30)
--- NOTE | 2019-03-26 19:36 | PDOC H&P ---
History of Present Illness Admission Date/PCP: 03/26/19 15:51 ESA OSMOHINDERMARTINA Patient complains of: Generalized weakness, Not feeling well, Rapid heart rate History of Present Illness: CIRA BARCENAS is a 63 year old female new to my practice with history of st age IV breast cancer who was evaluated earlier today in the office with complain of generalized weakness not feeling well and rapid heart rate. She was recently admitted to this facility on 03/22/19 with complain of chest pain, shortness of breath, nausea, vomiting, abdominal pain, dizziness, headache, hand and feet swelling. She was treated as case of dehydration and she did respond minimally to IV hydration with improvement in her associated tachycardia. She was discharged on 03/23/[address] Dos Santos, medical oncologist, with daily Procrit administration and IV fluid infusion. She admitted to significant oral fluid intake and urine output. She and family reported no improvement in her symptoms. I discussed case with Dr. Dos Santos earlier today with recommendation to come to her office for IV fluid and Procrit due to improvement in her CBC indices ad associated chemotherapy induced pancytopenia. Patient was decidedly brought to the ED by her family for further evaluation. Her initial assessment did revealed significant tachycardia, low serum BUN and creatinine. In view of her persistent tachycardia, tachypnea, and hypotension she was advised hospitalization for further evaluation and management. Her significant morbidities include stage IV breast cancer, anemia, osteoarthritis, and idiopathic peripheral neuropathy. Past Medical History Cardiac Medical History: Denies: Congestive Heart Failure, Myocardial Infarction, Hypertension Pulmonary Medical History: Denies: Asthma, Bronchitis, Chronic Obstructive Pulmonary Disease (COPD), Pneumonia, Tuberculosis Neurological Medical History: Reports: Other - peripheral neuropathy Denies: Seizures Renal/ Medical History: Denies: End Stage Renal Disease Malignancy Medical History: Reports: Breast Cancer GI Medical History: Denies: Cirrhosis, Gastroesophageal Reflux Disease Musculoskeltal Medical History: Reports: Arthritis Psychiatric Medical History: Denies: Bipolar Disorder, Depression Hematology: Reports: Anemia Denies: Bleeding Tendencies Past Surgical History Past Surgical History: Reports: Mastectomy - right Social History Lives with: Family Smoking Status: Never Smoker - Advance Directive Resuscitation Status: Full Code Family History Family History: Reviewed & Not Pertinent, DM Parental Family History Reviewed: Yes Children Family History Reviewed: Yes Sibling(s) Family History Reviewed.: Yes Medication/Allergy Allergies/Adverse Reactions: No Known Allergies Allergy (Verified 03/26/19 10:57) Review of Systems Constitutional: PRESENT: fatigue Eyes: ABSENT: visual disturbances Ears: ABSENT: hearing changes Nose, Mouth, and Throat: ABSENT: as per HPI, headache(s), mouth pain, sore throat, vertigo, other Cardiovascular: PRESENT: edema - hands and feet, palpitations, other - tachycardia Respiratory: ABSENT: cough, hemoptysis Gastrointestinal: ABSENT: abdominal pain, constipation, diarrhea, hematemesis, hematochezia, nausea, vomiting Genitourinary: ABSENT: dysuria, hematuria Musculoskeletal: PRESENT: deformity - related to joint involvement in arthritis Integumentary: PRESENT: other - discoloration to all fingernails and toenails Neurological: ABSENT: abnormal gait, abnormal speech, confusion, dizziness, focal weakness, syncope Psychiatric: ABSENT: anxiety, depression, homidical ideation, suicidal ideation Endocrine: ABSENT: cold intolerance, heat intolerance, polydipsia, polyuria Hematologic/Lymphatic: ABSENT: easy bleeding, easy bruising, lymphadenopathy Allergic/Immunologic: ABSENT: seasonal rhinorrhea Physical Exam Vital Signs: Temp Pulse Resp BP Pulse Ox 98.1 F 135 H 14 126/69 H 97 03/26/19 11:15 03/26/19 11:15 03/26/19 16:01 03/26/19 16:01 03/26/19 16:01 Intake & Output 03/25/19 03/26/19 03/27/19 06:59 06:59 06:59 Weight 67.132 kg General appearance: PRESENT: no acute distress, well-developed, well-nourished Head exam: PRESENT: atraumatic, normocephalic Eye exam: PRESENT: conjunctiva pink, EOMI, PERRLA. ABSENT: scleral icterus Ear exam: PRESENT: normal external ear exam Mouth exam: PRESENT: moist Neck exam: PRESENT: full ROM. ABSENT: carotid bruit, JVD, lymphadenopathy, thyromegaly Respiratory exam: PRESENT: clear to auscultation arlet, decreased breath sounds - at lung bases Cardiovascular exam: PRESENT: +S1, +S2, tachycardia Vascular exam: ABSENT: pallor GI/Abdominal exam: PRESENT: normal bowel sounds, soft. ABSENT: distended, guarding, mass, organolmegaly, rebound, tenderness Rectal exam: PRESENT: deferred Extremities exam: ABSENT: pedal edema Musculoskeletal exam: PRESENT: deformity - from arthritis Neurological exam: PRESENT: alert, awake, oriented to person, oriented to place, oriented to time, oriented to situation, CN II-XII grossly intact. ABSENT: motor sensory deficit Psychiatric exam: PRESENT: appropriate affect, normal mood. ABSENT: homicidal ideation, suicidal ideation Skin exam: PRESENT: dry, warm Results Laboratory Results: 03/26/19 11:26 03/26/19 11:26 03/26/19 03/26/19 03/26/19 11:26 11:26 12:18 WBC 4.4 RBC 3.36 L Hgb 10.8 L Hct 30.2 L MCV 90 MCH 32.1 MCHC 35.8 RDW 17.3 H Plt Count 82 L Seg Neutrophils % Not Reportable Lymphocytes % Not Reportable Monocytes % Not Reportable Eosinophils % Not Reportable Basophils % Not Reportable Absolute Neutrophils Not Reportable Absolute Lymphocytes Not Reportable Absolute Monocytes Not Reportable Absolute Eosinophils Not Reportable Absolute Basophils Not Reportable Sodium 132.2 L Potassium 3.4 L Chloride 98 Carbon Dioxide 26 Anion Gap 8 BUN 2 L Creatinine 0.42 L Est GFR ( Amer) > 60 Est GFR (Non-Af Amer) > 60 Glucose 93 Lactic Acid 1.3 Calcium 9.6 Total Bilirubin 1.0 AST 31 ALT 33 Alkaline Phosphatase 57 Total Protein 6.6 Albumin 3.4 L Urine Color Urine Appearance Urine pH Ur Specific [place] Urine Protein Urine Glucose (UA) Urine Ketones Urine Blood Urine Nitrite Ur Leukocyte Esterase Urine WBC (Auto) Urine RBC (Auto) 03/26/19 14:00 WBC RBC Hgb Hct MCV MCH MCHC RDW Plt Count Seg Neutrophils % Lymphocytes % Monocytes % Eosinophils % Basophils % Absolute Neutrophils Absolute Lymphocytes Absolute Monocytes Absolute Eosinophils Absolute Basophils Sodium Potassium Chloride Carbon Dioxide Anion Gap BUN Creatinine Est GFR ( Amer) Est GFR (Non-Af Amer) Glucose Lactic Acid Calcium Total Bilirubin AST ALT Alkaline Phosphatase Total Protein Albumin Urine Color YELLOW Urine Appearance CLEAR Urine pH 8.0 Ur Specific [place] 1.006 Urine Protein 30 H Urine Glucose (UA) NEGATIVE Urine Ketones 20 H Urine Blood MODERATE H Urine Nitrite NEGATIVE Ur Leukocyte Esterase NEGATIVE Urine WBC (Auto) 9 Urine RBC (Auto) 71 03/26/19 03/26/19 03/26/19 11:26 11:26 16:22 Creatine Kinase < 20 L CK-MB (CK-2) 0.40 Troponin I < 0.012 < 0.012 Impressions: Chest X-Ray 03/26/19 11:19 IMPRESSION: NO ACUTE RADIOGRAPHIC FINDING IN THE CHEST. Assessment & Plan - Diagnosis (1) POTS (postural orthostatic tachycardia syndrome) Is this a current diagnosis for this admission?: Yes Plan: See admitting attending physician orders for details of care plan. (2) Hypokalemia Is this a current diagnosis for this admission?: Yes Plan: See admitting attending physician orders for details of care plan. (3) Hyponatremia Is this a current diagnosis for this admission?: Yes Plan: See admitting attending physician orders for details of care plan. (4) Idiopathic peripheral neuropathy Is this a current diagnosis for this admission?: Yes Plan: See admitting attending physician orders for details of care plan. (5) Stage IV breast cancer in female Is this a current diagnosis for this admission?: Yes Plan: See admitting attending physician orders for details of care plan. (6) Anemia associated with breast cancer treated with erythropoietin Is this a current diagnosis for this admission?: Yes Plan: See admitting attending physician orders for details of care plan. (7) Osteoarthritis involving multiple joints on both sides of body Is this a current diagnosis for this admission?: Yes Plan: See admitting attending physician orders for details of care plan. - Time Time Spent: Greater than 70 Minutes Medications reviewed and adjusted accordingly: Yes Anticipated discharge: Home with Homehealth Within: within 48 hours - Inpatient Certification Based on my medical assessment, after consideration of the patient's comorbidities, presenting symptoms, or acuity I expect that the services needed warrant INPATIENT care.: No I certify that my determination is in accordance with my understanding of Medicare's requirements for reasonable and necessary INPATIENT services [42 CFR 412.3e].: No Post Hospital Care: D/C Signal Timer Documentation - Plan Summary Plan Summary: See admitting attending physician orders for details of care plan.
[2019-03-26] MEDS: CARVEDILOL 3.125 MG TABLET PO SCH (20:12)
[2019-03-26] MEDS: FLUDROCORTISONE ACETATE 0.1 MG TABLET PO SCH (20:14)
[2019-03-26] MEDS: POTASSIUM CHLORIDE 20 MEQ PACKET PO SCH ×2 (20:14→23:21)
[2019-03-26] MEDS: ONDANSETRON HCL INJ/PF 4 MG/2 ML SDV IV PRN (23:20)
[2019-03-26] MEDS: NORMAL SALINE 1000 ML 1,000 ML IV PRN (23:21)
[2019-03-27] MEDS: OXYCODONE-ACETAMINOPHEN 5-325 MG TABLET PO PRN ×5 (01:54→23:21)
[2019-03-27] MEDS: CARVEDILOL 3.125 MG TABLET PO SCH ×2 (06:01→17:35)
[2019-03-27] MEDS: PANTOPRAZOLE SODIUM 40 MG TABLET.DR PO SCH (06:01)
[2019-03-27] MEDS: NORMAL SALINE 1000 ML 1,000 ML IV PRN ×2 (06:01→15:43)
[2019-03-27 06:46] LABS: HEMOGLOBIN 9.3 g/dL (12.0-15.5); MEAN CORPUSCULAR HEMOGLOBIN 32.3 pg (27.0-33.4); MEAN CORPUSCULAR HGB CONC 35.6 g/dL (32.0-36.0); MEAN CORPUSCULAR VOLUME 91 fl (80-97); RED BLOOD COUNT 2.87 10^6/uL (3.72-5.28); RED CELL DISTRIBUTION WIDTH 17.1 % (11.5-14.0); WHITE BLOOD COUNT 6.3 10^3/uL (4.0-10.5)
[2019-03-27 07:12] LABS: ALANINE AMINOTRANSFERASE 28 U/L (9-52); ALBUMIN 2.5 g/dL (3.5-5.0); ALKALINE PHOSPHATASE 48 U/L (38-126); ANION GAP 6 (5-19); ASPARTATE AMINO TRANSFERASE 28 U/L (14-36); BILIRUBIN,DIRECT 0.4 mg/dL (0.0-0.4); BILIRUBIN,TOTAL 0.7 mg/dL (0.2-1.3); CALCIUM 8.3 mg/dL (8.4-10.2); CARBON DIOXIDE 21 mmol/L (22-30); CHLORIDE 106 mmol/L (98-107); GLUCOSE 88 mg/dL (75-110); POTASSIUM 3.7 mmol/L (3.6-5.0); SODIUM 133.2 mmol/L (137-145); TOTAL PROTEIN 5.3 g/dL (6.3-8.2)
[2019-03-27 07:14] LABS: BLOOD UREA NITROGEN < 2 mg/dL (7-20)
[2019-03-27 07:56] LABS: ABSOLUTE LYMPHOCYTES# (MANUAL) 1.1 10^3/uL (0.5-4.7); ABSOLUTE MONOCYTES # (MANUAL) 0.6 10^3/uL (0.1-1.4); BAND NEUTROPHILS % (MANUAL) 1 % (3-5); BASOPHILS % (MANUAL) 0 % (0-2); EOSINOPHILS % (MANUAL) 1 % (0-6); LYMPHOCYTES % (MANUAL) 16 % (13-45); MONOCYTES % (MANUAL) 10 % (3-13); SEGMENTED NEUTROPHILS % (MAN) 71 % (42-78); TOTAL CELLS COUNTED 100
[2019-03-27 07:59] LABS: ANISOCYTOSIS 1+; OVALOCYTES 1+; PLATELET COMMENT DECREASED; POIKILOCYTOSIS 1+; TEAR DROP CELLS SLIGHT; TOXIC GRANULATION 1+
[2019-03-27 08:00] LABS: PLATELET COUNT 78 10^3/uL (150-450)
[2019-03-27] MEDS ORDERED: POTASSIUM CHLORIDE 20 MEQ PACKET PO ONE (08:14)
[2019-03-27] MEDS: ONDANSETRON HCL INJ/PF 4 MG/2 ML SDV IV PRN (08:56)
[2019-03-27] MEDS: MAGNESIUM SULFATE/D5W 1 GM/100 ML RTUPB IV SCH ×2 (08:59→10:30)
[2019-03-27] MEDS ORDERED: (PENDING PHARMACY ID) (Megestrol Acetate [Megestrol Acetate] 800 MG) PO SCH (10:00)
[2019-03-27] MEDS ORDERED: (PENDING PHARMACY ID) (Vitamin E [Vitamin E] 400 UNIT) PO SCH (10:00)
[2019-03-27] MEDS ORDERED: (PENDING PHARMACY ID) (Calcium Carbonate/Vitamin D3 [Calcium 600-Vit D3 400 Tablet] 1 EACH PO SCH (10:00)
[2019-03-27] MEDS: MUPIROCIN 2% OINTMENT 22 GM TP SCH ×3 (10:29→18:55)
[2019-03-27] MEDS: FLUDROCORTISONE ACETATE 0.1 MG TABLET PO SCH (10:29)
[2019-03-27] MEDS: SULFAMETHOXAZOLE/TRIMETHOPRIM 800-160 MG TABLET PO SCH ×2 (10:30→22:00)
[2019-03-27] MEDS: CHOLECALCIFEROL (D3) 1,000 UNIT TABLET PO SCH (10:30)
[2019-03-27] MEDS: MEGESTROL ACETATE SUSP 400 MG/10 ML UDCUP PO SCH (10:42)
[2019-03-27] MEDS: VITAMIN E (DL, ACETATE) 400 UNIT CAPSULE PO SCH (10:43)
[2019-03-27] MEDS: CALCIUM CARBONATE 250 MG/VITAMIN D3 125 UNIT TABLET PO SCH (10:50)
--- NOTE | 2019-03-27 17:15 | PDOC PROGRESS REPORT ---
Subjective Progress Note for:: 03/27/19 Subjective:: Patient reported some improvement in her tachycardia but continue to experience dizziness with postural change, particularly standing up. No chest cohen. Continue to experience nausea, no vomiting. PO intake and appetite are improving. She remain on IV fluid support. Reason For Visit: POTS, ANEMIA, HYPONATREMIA, HYPOKALEMIA, Physical Exam Vital Signs: Temp Pulse Resp BP Pulse Ox 97.8 F 104 H 17 116/64 100 03/27/19 16:00 03/27/19 16:00 03/27/19 16:00 03/27/19 16:00 03/27/19 16:00 Intake & Output 03/26/19 03/27/19 03/28/19 06:59 06:59 06:59 Intake Total 833 1560 Output Total 600 Balance 233 1560 Weight 64.4 kg General appearance: PRESENT: no acute distress, well-developed, well-nourished Head exam: PRESENT: atraumatic, normocephalic Eye exam: PRESENT: conjunctiva pink. ABSENT: scleral icterus Ear exam: PRESENT: normal external ear exam Mouth exam: PRESENT: moist Respiratory exam: PRESENT: clear to auscultation arlet Cardiovascular exam: PRESENT: +S1, +S2, tachycardia Vascular exam: ABSENT: pallor GI/Abdominal exam: PRESENT: normal bowel sounds, soft. ABSENT: distended, guarding, mass, organolmegaly, rebound, tenderness Extremities exam: ABSENT: pedal edema Neurological exam: PRESENT: alert, awake, oriented to person, oriented to place, oriented to time, oriented to situation, CN II-XII grossly intact. ABSENT: motor sensory deficit Psychiatric exam: PRESENT: appropriate affect, normal mood. ABSENT: homicidal ideation, suicidal ideation Skin exam: PRESENT: dry, warm, other - Right breast open wound. Results Laboratory Results: 03/27/19 06:12 03/27/19 06:12 03/26/19 03/27/19 03/27/19 11:26 06:12 06:12 WBC 6.3 RBC 2.87 L Hgb 9.3 L Hct 26.0 L MCV 91 MCH 32.3 MCHC 35.6 RDW 17.1 H Plt Count 78 L Seg Neutrophils % Not Reportable Lymphocytes % Not Reportable Monocytes % Not Reportable Eosinophils % Not Reportable Basophils % Not Reportable Absolute Neutrophils Not Reportable Absolute Lymphocytes Not Reportable Absolute Monocytes Not Reportable Absolute Eosinophils Not Reportable Absolute Basophils Not Reportable Sodium 133.2 L Potassium 3.7 Chloride 106 Carbon Dioxide 21 L Anion Gap 6 BUN < 2 L Creatinine 0.37 L Est GFR ( Amer) > 60 Est GFR (Non-Af Amer) > 60 Glucose 88 Calcium 8.3 L Magnesium 1.3 L Total Bilirubin 0.7 AST 28 ALT 28 Alkaline Phosphatase 48 Total Protein 5.3 L Albumin 2.5 L 03/26/19 03/26/19 03/26/19 11:26 11:26 16:22 Creatine Kinase < 20 L CK-MB (CK-2) 0.40 Troponin I < 0.012 < 0.012 Impressions: Chest X-Ray 03/26/19 11:19 IMPRESSION: NO ACUTE RADIOGRAPHIC FINDING IN THE CHEST. Assessment & Plan - Diagnosis (1) POTS (postural orthostatic tachycardia syndrome) Is this a current diagnosis for this admission?: Yes Plan: See attending physician orders for details of care plan. (2) Hypokalemia Is this a current diagnosis for this admission?: Yes Plan: See attending physician orders for details of care plan. (3) Hyponatremia Is this a current diagnosis for this admission?: Yes Plan: See attending physician orders for details of care plan. (4) Idiopathic peripheral neuropathy Is this a current diagnosis for this admission?: Yes (5) Stage IV breast cancer in female Is this a current diagnosis for this admission?: Yes Plan: See attending physician orders for details of care plan. (6) Anemia associated with breast cancer treated with erythropoietin Is this a current diagnosis for this admission?: Yes (7) Osteoarthritis involving multiple joints on both sides of body Is this a current diagnosis for this admission?: Yes (8) Hypomagnesemia Is this a current diagnosis for this admission?: Yes Plan: See attending physician orders for details of care plan. - Time Time Spent with patient: 25-34 minutes Medications reviewed and adjusted accordingly: Yes Anticipated discharge: Home with Homehealth Within: Other - Inpatient Certification Based on my medical assessment, after consideration of the patient's comorbidities, presenting symptoms, or acuity I expect that the services needed warrant INPATIENT care.: Yes I certify that my determination is in accordance with my understanding of Medicare's requirements for reasonable and necessary INPATIENT services [42 CFR 412.3e].: Yes Medical Necessity: Significant Comorbidiites Make Outpatient Treatment Too Risky, Need Close Monitoring Due to Risk of Patient Decompensation, Need For IV Fluids, Need For Continuous Telemetry Monitoring, Risk of Complication if Not Cared For in Hospital, Risk of Diagnosis Which Will Require Inpatient Eval/Care/Monitoring Post Hospital Care: D/C Tobacco [place] Measurer Documentation - Plan Summary Plan Summary: See attending physician orders for details of care plan. I will change her admission status to full admission.
[2019-03-27] MEDS: AMITRIPTYLINE HCL 25 MG TABLET PO SCH (22:00)
[2019-03-28] MEDS: PANTOPRAZOLE SODIUM 40 MG TABLET.DR PO SCH (05:40)
[2019-03-28] MEDS: CARVEDILOL 3.125 MG TABLET PO SCH ×2 (05:40→18:05)
[2019-03-28] MEDS: OXYCODONE-ACETAMINOPHEN 5-325 MG TABLET PO PRN ×4 (06:20→20:42)
[2019-03-28] MEDS: MUPIROCIN 2% OINTMENT 22 GM TP SCH ×3 (09:18→18:06)
[2019-03-28] MEDS: FLUDROCORTISONE ACETATE 0.1 MG TABLET PO SCH (09:19)
[2019-03-28] MEDS: CALCIUM CARBONATE 250 MG/VITAMIN D3 125 UNIT TABLET PO SCH (09:20)
[2019-03-28] MEDS: MEGESTROL ACETATE SUSP 400 MG/10 ML UDCUP PO SCH (09:20)
[2019-03-28] MEDS: SULFAMETHOXAZOLE/TRIMETHOPRIM 800-160 MG TABLET PO SCH ×2 (09:20→21:43)
[2019-03-28] MEDS: VITAMIN E (DL, ACETATE) 400 UNIT CAPSULE PO SCH (09:21)
[2019-03-28] MEDS: CHOLECALCIFEROL (D3) 1,000 UNIT TABLET PO SCH (09:21)
--- NOTE | 2019-03-28 15:18 | PDOC PROGRESS REPORT ---
Subjective Progress Note for:: 03/28/19 Subjective:: Patient was seen by the bedside, unfortunate female with stage IV breast cancer, she has multiple complaints mostly due to pain and neuropathy symptoms she has an ulcer in the right axilla secondary to radiation therapy, she was short of breath, PE was suspected because of metastatic disease, CTA chest was obtained there was no pulmonary embolus demonstrated but she was found to have debris within the right mainstem bronchus. Patient overall prognosis is very poor Reason For Visit: POTS, PERSISTENT NAUSEA, HYPONATEMIA, HYPOKALEMIA, Physical Exam Vital Signs: Temp Pulse Resp BP Pulse Ox 97.9 F 100 16 92/49 L 100 03/28/19 11:12 03/28/19 14:00 03/28/19 11:12 03/28/19 11:12 03/28/19 11:12 Intake & Output 03/27/19 03/28/19 03/29/19 06:59 06:59 06:59 Intake Total 833 2340 520 Output Total 600 1200 Balance 233 1140 520 Weight 64.4 kg General appearance: PRESENT: mild distress Eye exam: PRESENT: PERRLA Respiratory exam: PRESENT: rhonchi Cardiovascular exam: PRESENT: +S1, +S2 GI/Abdominal exam: PRESENT: soft Extremities exam: PRESENT: pedal edema Neurological exam: PRESENT: alert Results Laboratory Results: 03/27/19 06:12 03/27/19 06:12 03/26/19 03/26/19 03/26/19 11:26 11:26 16:22 Creatine Kinase < 20 L CK-MB (CK-2) 0.40 Troponin I < 0.012 < 0.012 Impressions: Chest X-Ray 03/26/19 11:19 IMPRESSION: NO ACUTE RADIOGRAPHIC FINDING IN THE CHEST. Assessment & Plan - Diagnosis (1) Metastatic breast cancer Is this a current diagnosis for this admission?: Yes (2) Bronchial obstruction Is this a current diagnosis for this admission?: Yes Plan: Continue bronchodilators, she may need a bronchoscopy to remove the debris in the right bronchus or deep suctioning
--- NOTE | 2019-03-28 18:01 | RADIOLOGY REPORT (SQ) ---
EXAM DESCRIPTION: CTA CHEST COMPLETED DATE/TIME: 03/28/2019 5:29 pm REASON FOR STUDY: ? PE COMPARISON: Chest radiograph 03/26/2019 and earlier TECHNIQUE: CT scan of the chest performed using helical scanning technique with dynamic intravenous contrast injection. Images reviewed with lung, soft tissue and bone windows. Reconstructed coronal and sagittal MPR images reviewed. Additional 3 dimensional post-processing performed to develop Maximal Intensity Projection images (MA P). All images stored on PACS. All CT scanners at this facility use dose modulation, iterative reconstruction, and/or weight based d osing when appropriate to reduce radiation dose to as low as reasonably achievable (ALARA). [facility]: Dose Right [facility]: CareDose [facility]: Dose Right [facility]: Teradose 4D [facility]: Pinoccio CONTRAST TYPE AND DOSE: contrast/concentration: Isovue mg/ml; Total Contrast Delivered: 104.0 ml; T otal Saline Delivered: 154.0 ml 104 mL IV of Omnipaque 350- low osmolar. Suboptimal timing of contrast bolus. Only able to evaluate the central pulmonary arteries BUN after repeat timing of contrast bolus. RENAL FUNCTION: BUN 12 creatinine 0.37 RADIATION DOSE: CT Rad equipment meets quality standard of care and radiation dose reduction technSnapLogic ues were employed. CTDIvol: 3.3 - 18.7 mGy. DLP: 1313 mGy-cm. . LIMITATIONS: None. FINDINGS: LUNGS AND PLEURA: There is debris within the right mainstem bronchus. Bibasilar atelectas is. No focal consolidation, pleural effusion, pneumothorax. No pulmonary. AORTA AND GREAT VESSELS: No aneurysm. No dissection. Mild scattered calcified noncalcified. HEART: No pericardial effusion. No significant coronary artery calcifications. PULMONARY ARTERIES: No large central pulmonary embolus. HILAR AND MEDIASTINAL STRUCTURES: No identified masses or abnormal nodes. HARDWARE: Left-sided chest port tip terminates in the proximal SVC. UPPER ABDOMEN: Cholelithiasis. Remainder of the visualized upper abdominal structures are normal. THYROID AND OTHER SOFT TISSUES: Bilateral hypoattenuating thyroid nodules largest measuring 1.1 cm wi thin the right lobe of the thyroid gland. Given the patient's age in the size of the nodules, no fur ther follow-up is recommended. Postsurgical changes of the right breast. BONES: No acute or significant finding. 3D MIPS: Confirm above findings. OTHER: No other significant finding. IMPRESSION: 1. Suboptimal timing of contrast bolus after two attempts. No large central pulmonary embolus. 2. Mucous debris within the right mainstem bronchus. 3. Incidental note of cholelithiasis. COMMENT: Quality ID # [id number]: Final reports with documentation of one or more dose reduction techniques (e.g., Automated exposure control, adjustment of the mA and/or kV according to patient size, use of iterative reconstruction technique) TECHNICAL DOCUMENTATION: JOB ID: [id number] [employer]- All Rights Reserved Reading location - IP/workstation name: [email or web address]
[2019-03-28] MEDS: FENTANYL 12 MCG/HR PATCH.TD72 TD SCH (19:49)
[2019-03-28] MEDS: NORMAL SALINE 1000 ML 1,000 ML IV PRN (20:43)
[2019-03-28] MEDS: AMITRIPTYLINE HCL 25 MG TABLET PO SCH (21:43)
[2019-03-29] MEDS: OXYCODONE-ACETAMINOPHEN 5-325 MG TABLET PO PRN ×3 (01:50→21:26)
[2019-03-29] MEDS: LORAZEPAM 1 MG TABLET PO PRN (06:13)
[2019-03-29] MEDS: PANTOPRAZOLE SODIUM 40 MG TABLET.DR PO SCH (06:13)
[2019-03-29] MEDS: NORMAL SALINE 1000 ML 1,000 ML IV PRN (06:13)
[2019-03-29] MEDS: CARVEDILOL 3.125 MG TABLET PO SCH ×2 (06:14→17:47)
[2019-03-29] MEDS: MUPIROCIN 2% OINTMENT 22 GM TP SCH ×3 (09:35→17:49)
[2019-03-29] MEDS: CHOLECALCIFEROL (D3) 1,000 UNIT TABLET PO SCH (09:36)
[2019-03-29] MEDS: MEGESTROL ACETATE SUSP 400 MG/10 ML UDCUP PO SCH (09:36)
[2019-03-29] MEDS: SULFAMETHOXAZOLE/TRIMETHOPRIM 800-160 MG TABLET PO SCH ×2 (09:36→21:27)
[2019-03-29] MEDS: FLUDROCORTISONE ACETATE 0.1 MG TABLET PO SCH (09:36)
[2019-03-29] MEDS: VITAMIN E (DL, ACETATE) 400 UNIT CAPSULE PO SCH (09:36)
[2019-03-29] MEDS: CALCIUM CARBONATE 250 MG/VITAMIN D3 125 UNIT TABLET PO SCH (09:36)
[2019-03-29] MEDS ORDERED: FENTANYL 12 MCG/HR PATCH.TD72 TD SCH (10:00)
[2019-03-29] MEDS ORDERED: IPRATROPIUM/ALBUTEROL 0.5-2.5 MG/3 ML AMPUL NEB PRN (11:52)
--- NOTE | 2019-03-29 13:51 | PDOC PROGRESS REPORT ---
Subjective Progress Note for:: 03/29/19 Subjective:: Patient seen by the bedside, she was evaluated, the results of the CAT scan of the chest was discussed with the patient, she had debris in the right main bronchus she will need deep suctioning or bronchoscopy Reason For Visit: POTS, PERSISTENT NAUSEA, HYPONATEMIA, HYPOKALEMIA, Physical Exam Vital Signs: Temp Pulse Resp BP Pulse Ox 98.1 F 104 H 17 128/58 H 100 03/29/19 12:00 03/29/19 12:00 03/29/19 12:00 03/29/19 12:00 03/29/19 12:00 Intake & Output 03/28/19 03/29/19 03/30/19 06:59 06:59 06:59 Intake Total 3340 1520 Output Total 1200 900 Balance 2140 620 Weight 64.4 kg General appearance: PRESENT: no acute distress Eye exam: PRESENT: PERRLA Respiratory exam: PRESENT: rhonchi Cardiovascular exam: PRESENT: +S1, +S2 GI/Abdominal exam: PRESENT: soft Neurological exam: PRESENT: alert Results Laboratory Results: 03/27/19 06:12 03/27/19 06:12 03/26/19 03/26/19 03/26/19 11:26 11:26 16:22 Creatine Kinase < 20 L CK-MB (CK-2) 0.40 Troponin I < 0.012 < 0.012 Impressions: Chest X-Ray 03/26/19 11:19 IMPRESSION: NO ACUTE RADIOGRAPHIC FINDING IN THE CHEST. Chest/Abdomen CTA 03/28/19 00:00 IMPRESSION: 1. Suboptimal timing of contrast bolus after two attempts. No large central pulmonary embolus. 2. Mucous debris within the right mainstem bronchus. 3. Incidental note of cholelithiasis. Assessment & Plan - Diagnosis (1) Metastatic breast cancer Is this a current diagnosis for this admission?: Yes Plan: She has a poor prognosis (2) Bronchial obstruction Is this a current diagnosis for this admission?: Yes Plan: Continue bronchodilators, she may need a bronchoscopy to remove the debris in the right bronchus or deep suctioning
[2019-03-29] MEDS: AMITRIPTYLINE HCL 25 MG TABLET PO SCH (21:27)
[2019-03-30] MEDS: PANTOPRAZOLE SODIUM 40 MG TABLET.DR PO SCH (05:36)
[2019-03-30] MEDS: CARVEDILOL 3.125 MG TABLET PO SCH ×2 (05:36→17:07)
[2019-03-30] MEDS: CALCIUM CARBONATE 250 MG/VITAMIN D3 125 UNIT TABLET PO SCH (09:28)
[2019-03-30] MEDS: FLUDROCORTISONE ACETATE 0.1 MG TABLET PO SCH (09:28)
[2019-03-30] MEDS: ONDANSETRON HCL INJ/PF 4 MG/2 ML SDV IV PRN (09:33)
[2019-03-30] MEDS: SULFAMETHOXAZOLE/TRIMETHOPRIM 800-160 MG TABLET PO SCH ×2 (09:33→22:59)
[2019-03-30] MEDS: VITAMIN E (DL, ACETATE) 400 UNIT CAPSULE PO SCH (09:33)
[2019-03-30] MEDS: CHOLECALCIFEROL (D3) 1,000 UNIT TABLET PO SCH (09:33)
[2019-03-30] MEDS: MEGESTROL ACETATE SUSP 400 MG/10 ML UDCUP PO SCH (09:33)
[2019-03-30] MEDS: MUPIROCIN 2% OINTMENT 22 GM TP SCH ×3 (09:34→17:02)
[2019-03-30] MEDS: NORMAL SALINE 1000 ML 1,000 ML IV PRN (09:37)
[2019-03-30] MEDS: OXYCODONE-ACETAMINOPHEN 5-325 MG TABLET PO PRN ×2 (11:56→19:54)
[2019-03-30] MEDS: LORAZEPAM 1 MG TABLET PO PRN (18:26)
--- NOTE | 2019-03-30 18:51 | PDOC PROGRESS REPORT ---
Subjective Progress Note for:: 03/30/19 Subjective:: Patient reported some improvement in her postural dizziness. She denied any chest pain or difficulty with breathing. She reported some swelling in her legs. She remain on IV fluid support. Reason For Visit: POTS, PERSISTENT NAUSEA, HYPONATEMIA, HYPOKALEMIA, Physical Exam Vital Signs: Temp Pulse Resp BP Pulse Ox 98.6 F 102 H 17 117/57 L 100 03/29/19 23:02 03/30/19 02:00 03/29/19 23:02 03/29/19 23:02 03/29/19 23:02 Intake & Output 03/29/19 03/30/19 03/31/19 06:59 06:59 06:59 Intake Total 1520 2260 Output Total 900 Balance 620 2260 Weight 64.4 kg 75.8 kg General appearance: PRESENT: no acute distress Head exam: PRESENT: atraumatic, normocephalic Eye exam: PRESENT: conjunctiva pink. ABSENT: scleral icterus Ear exam: PRESENT: normal external ear exam Mouth exam: PRESENT: moist Respiratory exam: PRESENT: clear to auscultation arlet, decreased breath sounds - at lung bases Cardiovascular exam: PRESENT: +S1, +S2, tachycardia. ABSENT: diastolic murmur, systolic murmur Vascular exam: ABSENT: pallor GI/Abdominal exam: PRESENT: normal bowel sounds, soft. ABSENT: distended, guarding, mass, organolmegaly, rebound, tenderness Extremities exam: PRESENT: pedal edema - minimal, nonpitting, and bilaterally Neurological exam: PRESENT: alert, awake, oriented to person, oriented to place, oriented to time, oriented to situation, CN II-XII grossly intact. ABSENT: motor sensory deficit Psychiatric exam: PRESENT: appropriate affect, normal mood. ABSENT: homicidal ideation, suicidal ideation Skin exam: PRESENT: dry, warm Results Laboratory Results: 03/27/19 06:12 03/27/19 06:12 03/26/19 11:54 Blood Blood Culture - Final Micrococcus Species 03/26/19 03/26/19 03/26/19 11:26 11:26 16:22 Creatine Kinase < 20 L CK-MB (CK-2) 0.40 Troponin I < 0.012 < 0.012 Impressions: Chest X-Ray 03/26/19 11:19 IMPRESSION: NO ACUTE RADIOGRAPHIC FINDING IN THE CHEST. Chest/Abdomen CTA 03/28/19 00:00 IMPRESSION: 1. Suboptimal timing of contrast bolus after two attempts. No large central pulmonary embolus. 2. Mucous debris within the right mainstem bronchus. 3. Incidental note of cholelithiasis. Assessment & Plan - Diagnosis (1) POTS (postural orthostatic tachycardia syndrome) Is this a current diagnosis for this admission?: Yes Plan: Decrease IV Fluid rate to 50mL/hour. Increase Fludrocortisone to 0.1 mg p.o daily. (2) Hypokalemia Is this a current diagnosis for this admission?: Yes (3) Hyponatremia Is this a current diagnosis for this admission?: Yes (4) Idiopathic peripheral neuropathy Is this a current diagnosis for this admission?: Yes (5) Stage IV breast cancer in female Is this a current diagnosis for this admission?: Yes (6) Anemia associated with breast cancer treated with erythropoietin Is this a current diagnosis for this admission?: Yes (7) Osteoarthritis involving multiple joints on both sides of body Is this a current diagnosis for this admission?: Yes (8) Hypomagnesemia Is this a current diagnosis for this admission?: Yes - Time Time Spent with patient: 25-34 minutes Medications reviewed and adjusted accordingly: Yes Anticipated discharge: Home with Homehealth Within: Other - Inpatient Certification Based on my medical assessment, after consideration of the patient's com orbidities, presenting symptoms, or acuity I expect that the services needed warrant INPATIENT care.: Yes I certify that my determination is in accordance with my understanding of Medicare's requirements for reasonable and necessary INPATIENT services [42 CFR 412.3e].: Yes Medical Necessity: Significant Comorbidiites Make Outpatient Treatment Too Risky, Need Close Monitoring Due to Risk of Patient Decompensation, Need For IV Fluids, Need For Continuous Telemetry Monitoring, Risk of Complication if Not Cared For in Hospital, Risk of Diagnosis Which Will Require Inpatient Eval/Care/Monitoring Post Hospital Care: D/C Community Advocate Documentation - Plan Summary Plan Summary: See attending physician orders for details of her care plan.
[2019-03-30] MEDS ORDERED: BISACODYL 5 MG TABEC PO ONE (20:00)
[2019-03-30] MEDS: CARVEDILOL 6.25 MG TABLET PO SCH (22:59)
[2019-03-30] MEDS: AMITRIPTYLINE HCL 25 MG TABLET PO SCH (22:59)
[2019-03-31] MEDS: PANTOPRAZOLE SODIUM 40 MG TABLET.DR PO SCH ×2 (06:13→06:30)
[2019-03-31] MEDS: OXYCODONE-ACETAMINOPHEN 5-325 MG TABLET PO PRN ×3 (06:30→17:10)
[2019-03-31] MEDS: NORMAL SALINE 1000 ML 1,000 ML IV PRN (06:32)
--- NOTE | 2019-03-31 08:25 | PDOC PROGRESS REPORT ---
Subjective Progress Note for:: 03/31/19 Subjective:: Patient reported some improvement in her postural dizziness and participation in self care . No chest pain or difficulty with breathing. Reason For Visit: POTS, PERSISTENT NAUSEA, HYPONATEMIA, HYPOKALEMIA, Physical Exam Vital Signs: Temp Pulse Resp BP Pulse Ox 98.6 F 101 H 15 115/59 L 99 03/31/19 00:00 03/31/19 07:00 03/31/19 00:00 03/31/19 00:00 03/31/19 00:00 Intake & Output 03/30/19 03/31/19 04/01/19 06:59 06:59 06:59 Intake Total 2260 2117 Output Total 750 Balance 2260 1367 Weight 75.8 kg 75.3 kg Physical Exam: General appearance: PRESENT: no acute distress Head exam: PRESENT: atraumatic, normocephalic Eye exam: PRESENT: conjunctiva pink. ABSENT: pallor, scleral icterus Ear exam: PRESENT: normal external ear exam Mouth exam: PRESENT: moist Respiratory exam: PRESENT: clear to auscultation arlet, decreased breath sounds - at lung bases Cardiovascular exam: PRESENT: +S1, +S2, tachycardia. ABSENT: diastolic murmur, systolic murmur GI/Abdominal exam: PRESENT: normal bowel sounds, soft. ABSENT: distended, guarding, mass, organomegaly, rebound, tenderness Extremities exam: PRESENT: pedal edema - minimal, nonpitting, and bilaterally Neurological exam: PRESENT: alert, awake, oriented to person, oriented to place, oriented to time, oriented to situation, CN II-XII grossly intact. ABSENT: motor sensory deficit Psychiatric exam: PRESENT: appropriate affect, normal mood. ABSENT: homicidal ideation, suicidal ideation Skin exam: PRESENT: dry, warm Results Laboratory Results: 03/27/19 06:12 03/27/19 06:12 03/26/19 03/26/19 03/26/19 11:26 11:26 16:22 Creatine Kinase < 20 L CK-MB (CK-2) 0.40 Troponin I < 0.012 < 0.012 Impressions: Chest X-Ray 03/26/19 11:19 IMPRESSION: NO ACUTE RADIOGRAPHIC FINDING IN THE CHEST. Chest/Abdomen CTA 03/28/19 00:00 IMPRESSION: 1. Suboptimal timing of contrast bolus after two attempts. No large central pulmonary embolus. 2. Mucous debris within the right mainstem bronchus. 3. Incidental note of cholelithiasis. Assessment & Plan - Diagnosis (1) POTS (postural orthostatic tachycardia syndrome) Is this a current diagnosis for this admission?: Yes (2) Hypokalemia Is this a current diagnosis for this admission?: Yes (3) Hyponatremia Is this a current diagnosis for this admission?: Yes (4) Idiopathic peripheral neuropathy Is this a current diagnosis for this admission?: Yes (5) Stage IV breast cancer in female Is this a current diagnosis for this admission?: Yes (6) Anemia associated with breast cancer treated with erythropoietin Is this a current diagnosis for this admission?: Yes (7) Osteoarthritis involving multiple joints on both sides of body Is this a current diagnosis for this admission?: Yes (8) Hypomagnesemia Is this a current diagnosis for this admission?: Yes - Time Time Spent with patient: 25-34 minutes Medications reviewed and adjusted accordingly: Yes Anticipated discharge: Home with Homehealth Within: Other - Inpatient Certification Based on my medical assessment, after consideration of the patient's comorbidities, presenting symptoms, or acuity I expect that the services needed warrant INPATIENT care.: Yes I certify that my determination is in accordance with my understanding of Medicare's requirements for reasonable and necessary INPATIENT services [42 CFR 412.3e].: Yes Medical Necessity: Significant Comorbidiites Make Outpatient Treatment Too Risky, Need Close Monitoring Due to Risk of Patient Decompensation, Need For IV Fluids, Need For Continuous Telemetry Monitoring, Risk of Complication if Not Cared For in Hospital, Risk of Diagnosis Which Will Require Inpatient Eval/Care/Monitoring Post Hospital Care: D/C Fish Liver Sorter Documentation - Plan Summary Plan Summary: D/C IV fluid. Encourage increase activity as often as possible. D/C personal financial planner will look into VETERINARY DENTIST services upon discharge.
[2019-03-31] MEDS: LORAZEPAM 1 MG TABLET PO PRN ×2 (08:44→17:13)
[2019-03-31] MEDS: CHOLECALCIFEROL (D3) 1,000 UNIT TABLET PO SCH (10:35)
[2019-03-31] MEDS: SULFAMETHOXAZOLE/TRIMETHOPRIM 800-160 MG TABLET PO SCH ×2 (10:35→21:27)
[2019-03-31] MEDS: VITAMIN E (DL, ACETATE) 400 UNIT CAPSULE PO SCH (10:36)
[2019-03-31] MEDS: FLUDROCORTISONE ACETATE 0.1 MG TABLET PO SCH (10:36)
[2019-03-31] MEDS: CARVEDILOL 6.25 MG TABLET PO SCH ×2 (10:37→21:28)
[2019-03-31] MEDS: CALCIUM CARBONATE 250 MG/VITAMIN D3 125 UNIT TABLET PO SCH (10:37)
[2019-03-31] MEDS: FENTANYL 12 MCG/HR PATCH.TD72 TD SCH (10:38)
[2019-03-31] MEDS: MUPIROCIN 2% OINTMENT 22 GM TP SCH ×3 (10:38→17:02)
[2019-03-31] MEDS: MEGESTROL ACETATE SUSP 400 MG/10 ML UDCUP PO SCH (10:40)
[2019-03-31] MEDS ORDERED: BISACODYL 10 MG SUPP.RECT PR ONE (20:15)
[2019-03-31] MEDS: AMITRIPTYLINE HCL 25 MG TABLET PO SCH (21:27)
[2019-04-01] MEDS: PANTOPRAZOLE SODIUM 40 MG TABLET.DR PO SCH (05:18)
[2019-04-01] MEDS: OXYCODONE-ACETAMINOPHEN 5-325 MG TABLET PO PRN ×3 (06:35→17:45)
[2019-04-01] MEDS: LORAZEPAM 1 MG TABLET PO PRN ×2 (06:35→15:14)
[2019-04-01] MEDS: MUPIROCIN 2% OINTMENT 22 GM TP SCH ×3 (09:52→17:08)
[2019-04-01] MEDS: CALCIUM CARBONATE 250 MG/VITAMIN D3 125 UNIT TABLET PO SCH (09:53)
[2019-04-01] MEDS: CHOLECALCIFEROL (D3) 1,000 UNIT TABLET PO SCH (09:53)
[2019-04-01] MEDS: CARVEDILOL 6.25 MG TABLET PO SCH (09:53)
[2019-04-01] MEDS: SULFAMETHOXAZOLE/TRIMETHOPRIM 800-160 MG TABLET PO SCH (09:53)
[2019-04-01] MEDS: FLUDROCORTISONE ACETATE 0.1 MG TABLET PO SCH (09:55)
[2019-04-01] MEDS: MEGESTROL ACETATE SUSP 400 MG/10 ML UDCUP PO SCH (09:55)
[2019-04-01] MEDS: VITAMIN E (DL, ACETATE) 400 UNIT CAPSULE PO SCH (09:55)
[2019-04-01 13:06] VITALS: BP 105/54
--- NOTE | 2019-04-01 19:09 | PDOC DISCHARGE SUMMARY ---
General - Admit/Disc Date/PCP Admission Date/Primary Care Provider: 03/27/19 17:16 ESAARIEL GONZALEZ Discharge Date: 04/01/19 - Discharge Diagnosis (1) POTS (postural orthostatic tachycardia syndrome) Is this a current diagnosis for this admission?: Yes (2) Hypokalemia Is this a current diagnosis for this admission?: Yes (3) Hyponatremia Is this a current diagnosis for this admission?: Yes (4) Idiopathic peripheral neuropathy Is this a current diagnosis for this admission?: Yes (5) Stage IV breast cancer in female Is this a current diagnosis for this admission?: Yes (6) Anemia associated with breast cancer treated with erythropoietin Is this a current diagnosis for this admission?: Yes (7) Osteoarthritis involving multiple joints on both sides of body Is this a current diagnosis for this admission?: Yes (8) Hypomagnesemia Is this a current diagnosis for this admission?: Yes - Additional Information Resuscitation Status: Full Code Prescriptions: Carvedilol [Coreg 6.25 mg Tablet] 6.25 mg PO Q12 #60 tablet Fludrocortisone Acetate [Florinef 0.1 mg Tablet] 0.1 mg PO DAILY #30 tablet Home Medications: Amitriptyline HCl [Elavil 25 mg Tablet] 25 mg PO QHS 03/26/19 Calcium Carbonate/Vitamin D3 [Calcium 600-Vit D3 400 Tablet] 1 each PO DAILY 03/26/19 Cholecalciferol (Vitamin D3) [Vitamin D3 1000 Unit Tablet] 1,000 unit PO DAILY 03/26/19 Fentanyl [Duragesic 12 Mcg/Hr Transdermal Patch] 1 each TD Q3D 03/26/19 Lorazepam [Ativan 1 mg Tablet] 1 mg PO Q8HP PRN 03/26/19 Megestrol Acetate 800 mg PO DAILY 03/26/19 Mupirocin [Bactroban 2% Ointment 22 gm] 1 applic TP TID 03/26/19 Ondansetron HCl [Zofran 8 mg Tablet] 8 mg PO ASDIR PRN 03/26/19 Oxycodone HCl/Acetaminophen [Percocet 5-325 mg Tablet] 1 tab PO Q8HP PRN 03/26/19 Prochlorperazine Maleate [Compazine] 10 mg PO Q6HP PRN 03/26/19 Sulfamethoxazole/Trimethoprim [Septra-Ds 800-160 mg Tablet] 1 tab PO Q12 03/26/19 Vitamin E 400 unit PO DAILY 03/26/19 Carvedilol [Coreg 6.25 mg Tablet] 6.25 mg PO Q12 #60 tablet 04/01/19 Fludrocortisone Acetate [Florinef 0.1 mg Tablet] 0.1 mg PO DAILY #30 tablet 04/01/19 History of Present Illness Patient complains of: Generalized weakness History of Present Illness: CIRA BARCENAS is a 63 year old female new to my practice with history of stage IV breast cancer who was evaluated earlier today in the office with complain of generalized weakness not feeling well and rapid heart rate. She was recently admitted to this facility on 03/22/2019 with complain of chest pain, shortness of breath, nausea, vomiting, abdominal pain, dizziness, headache, hand and feet swelling. She was treated as case of dehydration and she did respond minimally to IV hydration with improvement in her associated tachycardia. She was discharged on 03/23/[address] Dos Santos, medical oncologist, with daily Procrit administration and IV fluid infusion. She admitted to significant oral fluid intake and urine output. She and family reported no i mprovement in her symptoms. I discussed case with Dr. Dos Santos earlier today with recommendation to come to her office for IV fluid and Procrit due to improvement in her CBC indices ad associated chemotherapy induced pancytopenia. Patient was decidedly brought to the ED by her family for further evaluation. Her initial assessment did revealed significant tachycardia, low serum BUN and creatinine. I n view of her persistent tachycardia, tachypnea, and hypotension she was advised hospitalization for further evaluation and management. Her significant morbidities include stage IV breast cancer, anemia, osteoarthritis, and idiopathic peripheral neuropathy. Hospital Course Hospital Course: Patient was admitted due to her significant tachycardia and generalized weakness. she was diagnosed with POTS due to constellation of her symptoms. She responded to IV fluid support along with Fludrocortisone and Carvedilol. With adjustment in dosage, she has been able to participate in self care. She is agreeable to discharge home today with home health care services including visiting nurse, physical therapist and aide services. Physical Exam Vital Signs: Temp Pulse Resp BP Pulse Ox 98.1 F 91 16 105/54 L 100 04/01/19 12:43 04/01/19 14:00 04/01/19 12:43 04/01/19 12:43 04/01/19 12:43 Intake & Output 03/31/19 04/01/19 04/02/19 06:59 06:59 06:59 Intake Total 2117 1771 717 Output Total 750 950 Balance 1367 821 717 Weight 75.3 kg 76.8 kg Physical Exam: General appearance: PRESENT: no acute distress Head exam: PRESENT: atraumatic, normocephalic Eye exam: PRESENT: conjunctiva pink. ABSENT: pallor, scleral icterus Ear exam: PRESENT: normal external ear exam Mouth exam: PRESENT: moist Respiratory exam: PRESENT: clear to auscultation arlet Cardiovascular exam: PRESENT: +S1, +S2, tachycardia. ABSENT: diastolic murmur, systolic murmur GI/Abdominal exam: PRESENT: normal bowel sounds, soft. ABSENT: distended, guarding, mass, organomegaly, rebound, tenderness Extremities exam: PRESENT: pedal edema - minimal Neurological exam: PRESENT: alert, awake, oriented to person, oriented to place, oriented to time, oriented to situation, CN II-XII grossly intact. ABSENT: motor sensory deficit Psychiatric exam: PRESENT: appropriate affect, normal mood. ABSENT: homicidal ideation, suicidal ideation Skin exam: PRESENT: dry, warm Results Laboratory Results: 03/27/19 06:12 03/27/19 06:12 03/26/19 03/26/19 03/26/19 11:26 11:26 16:22 Creatine Kinase < 20 L CK-MB (CK-2) 0.40 Troponin I < 0.012 < 0.012 Impressions: Chest X-Ray 03/26/19 11:19 IMPRESSION: NO ACUTE RADIOGRAPHIC FINDING IN THE CHEST. Chest/Abdomen CTA 03/28/19 00:00 IMPRESSION: 1. Suboptimal timing of contrast bolus after two attempts. No large central pulmonary embolus. 2. Mucous debris within the right mainstem bronchus. 3. Incidental note of cholelithiasis. Qualifiers - * PATIENT BEING DISCHARGED WITH ANY OF THE FOLLOWING DIAGNOSIS: No Acute Heart Failure - Is this a Heart Failure Patient?: No Plan Discharge Plan: discharge home today with PROFESSOR OF OCEANOGRAPHY services. Follow up in the office as instructed upon discharge.
== END 2019-04-01 20:01 | disposition home health service (06) | DRG 308 ==
LOC: ER 10:57 → EH 15:51 → OBSVTOIN 15:51 → INTOOBSV 15:51 → 4S 18:34 → OBSVTOIN 03-27 17:16 → 4N 03-31 13:37
PROVIDERS: ADMIT Internal Medicine Geriatric Medicine; ATTEND Internal Medicine Geriatric Medicine
DX: I49.8 Other specified cardiac arrhythmias (principal); D61.810 Antineoplastic chemotherapy induced pancytopenia; E87.1 Hypo-osmolality and hyponatremia; J98.09 Other diseases of bronchus, not elsewhere classified; E83.42 Hypomagnesemia; C50.919 Malignant neoplasm of unspecified site of unspecified female breast; I95.9 Hypotension, unspecified; D63.8 Anemia in other chronic diseases classified elsewhere; I49.9 Cardiac arrhythmia, unspecified; E87.6 Hypokalemia; G60.9 Hereditary and idiopathic neuropathy, unspecified; M15.9 Polyosteoarthritis, unspecified; R53.1 Weakness; R06.82 Tachypnea, not elsewhere classified; R60.9 Edema, unspecified; L59.8 Other specified disorders of the skin and subcutaneous tissue related to radiation; R00.0 Tachycardia, unspecified; R42 Dizziness and giddiness; Z90.11 Acquired absence of right breast and nipple; Z79.899 Other long term (current) drug therapy
CPT/HCPCS: 36415; 71045; 71275; 80053; 81001; 82550; 82553; 83605; 83735; 84484; 85025; 87040; 87077; 93005; 93010; 99285; G0378; J2405; J3475; J3490; J7030

== ENCOUNTER 2019-04-02 07:33 | Emergency (ER) | payer MEDICAID ==
--- NOTE | 2019-04-02 08:55 | RADIOLOGY REPORT (SQ) ---
EXAM DESCRIPTION: CT ABD/PELVIS NO ORAL OR IV; CT CHEST WITHOUT COMPLETED DATE/TIME: 04/02/2019 8:37 am REASON FOR STUDY: fall COMPARISON: CT chest, 03/28/2019 TECHNIQUE: CT scan of the chest performed without intravenous contrast using helical scanning techni que. Images reviewed with lung, soft tissue and bone windows. Reconstructed coronal and sagittal MPR images reviewed. All images stored on PACS. CT scan of the abdomen and pelvis performed without intravenous contrast and withoutoral contrast usi ng helical scanning technique with dynamic intravenous contrast injection. Images reviewed with lung , soft tissue and bone windows. Reconstructed coronal and sagittal MPR images reviewed. All images stored on PACS. All CT scanners at this facility use dose modulation, iterative reconstruction, and/or weight based d osing when appropriate to reduce radiation dose to as low as reasonably achievable (ALARA). [facility]: Dose Right [facility]: CareDose [facility]: Dose Right [facility]: Teradose 4D [facility]: Smart [employer] RADIATION DOSE: CT Rad equipment meets quality standard of care and radiation dose reduction techniq ues were employed. CTDIvol: 9.2 mGy. DLP: 616 mGy-cm. mGy. LIMITATIONS: Lack of intravenous contrast. FINDINGS: CHEST: AXILLAE: No adenopathy. CHEST WALL: No masses. No subcutaneous air. LUNGS: No significant change in bandlike consolidation in the bilateral lung bases compared to prior examination. PLEURA: Trace pleural effusions. THYROID: A low-attenuation nodule of the right lobe, poorly appreciated on noncontrast examination. HILAR AND MEDIASTINAL STRUCTURES: No identified masses or abnormal nodes. AORTA AND GREAT VESSELS: No aneurysm. HEART: No pericardial effusion. HARDWARE AND LIFELINES: None. BONES: No significant finding. OTHER: Left chest port catheter. ABDOMEN AND PELVIS: LIVER: Normal size. No masses. No dilated ducts. SPLEEN: Normal size. No focal lesions. PANCREAS: No masses. No significant calcifications. No adjacent inflammation or peripancreatic flui d collections. Pancreatic duct not dilated. GALLBLADDER: Gallstones. No inflammatory changes to suggest cholecystitis. ADRENAL GLANDS: No significant masses or asymmetry. RIGHT KIDNEY AND URETER: No solid masses. Assessment limited by lack of IV contrast. No significant c alcification. No hydronephrosis or hydroureter. LEFT KIDNEY AND URETER: No solid masses. Assessment limited by lack of IV contrast. No significant ca lcification. No hydronephrosis or hydroureter. AORTA AND VESSELS: No aneurysm. RETROPERITONEUM: No retroperitoneal adenopathy, hemorrhage or masses. APPENDIX: Normal. LARGE AND SMALL BOWEL: No dilatation. No masses. No wall thickening. ABDOMINAL WALL: No hernia or masses. PERITONEAL CAVITY: No free air. No free fluid. No peritoneal implants or masses. PELVIS: No mass or free fluid. Normal bladder. BONES: No significant or acute findings. OTHER: No other significant finding. IMPRESSION: 1. No noncontrast CT evidence of acute traumatic injury to the chest, abdomen, or pelvi s. Please note that noncontrast CT is limited for the evaluation of trauma and vascular, mediastinal , or abdominal solid organ injury is not excluded. In general, intravenous contrast is strongly kinsey cated for the evaluation of trauma unless an absolute contraindication exists. 2. Bandlike consolidation of the bilateral lung bases and trace bilateral pleural effusions are not significantly changed from prior examination dated 03/28/2019. TECHNICAL DOCUMENTATION: JOB ID: [id number] Quality ID # [id number]: Final reports with documentation of one or more dose reduction techniques (e.g., Au tomated exposure control, adjustment of the mA and/or kV according to patient size, use of iterative reconstruction technique) 2010 [employer]- All Rights Reserved Reading location - IP/workstation name: [email or web address]
--- NOTE | 2019-04-02 09:04 | ER Document Report ---
ED General - General Chief Complaint: Fall Stated Complaint: FALL/RIGHT FLANK PAIN Primary Care Provider: ESA GONZALEZ MD [Primary Care Provider] - Follow up as needed Notes: 63-year-old lady with known metastatic breast cancer presents with right lower rib and back pain after a fall from standing. Lost her balance. Legs gave out. No numbness tingling or history of leg weakness with the cancer. No saddle anesthesia or loss of continence. She did not hit her head. Her back at the bathtub. No shortness of breath. Last chemo was about 3 weeks ago. TRAVEL OUTSIDE OF THE [place] IN LAST 30 DAYS: No - Related Data Allergies/Adverse Reactions: No Known Allergies Allergy (Verified 03/26/19 10:57) Past Medical History - Social History Smoking Status: Unknown if Ever Smoked Family History: Reviewed & Not Pertinent, DM Patient has suicidal ideation: No Patient has homicidal ideation: No - Past Medical History Cardiac Medical History: Denies: Hx Congestive Heart Failure, Hx Heart Attack, Hx Hypertension Pulmonary Medical History: Denies: Hx Asthma, Hx Bronchitis, Hx COPD, Hx Pneumonia, Hx Tuberculosis Neurological Medical History: Denies: Hx Seizures Renal/ Medical History: Denies: Hx End Stage Renal Disease, Hx Kidney Stones, Hx Peritoneal Dialysis Malignancy Medical History: Reports: Hx Breast Cancer GI Medical History: Denies: Hx Cirrhosis, Hx Gastroesophageal Reflux Disease, Hx Ulcer Musculoskeletal Medical History: Reports Hx Arthritis, Denies Hx Multiple Sclerosis Psychiatric Medical History: Denies: Hx Bipolar Disorder, Hx Depression, Hx Schizophrenia Past Surgical History: Reports: Hx Mastectomy - right Review of Systems - Review of Systems Notes: REVIEW OF SYSTEMS GEN: Denies fever, chills, weight loss ENT: Denies sore throat, nasal discharge, ear pain EYES: Denies blurry vision, eye pain, discharge CV: Denies chest pain, palpitations, edema RESP: Denies cough, shortness of breath, wheezing GI: Denies abdominal pain, nausea, vomiting, diarrhea MSK: Back pain SKIN: Denies rash, skin lesions LYMPH: Denies swollen glands/lymph nodes NEURO: Denies headache, focal weakness or numbness, dizziness PSYCH: Denies depression, suicidal or homicidal ideation PHYSICAL EXAMINATION General: No acute distress, well-nourished Head: Atraumatic, normocephalic. Alopecia. ENT: Mouth normal, oropharynx moist, no exudates or tonsillar enlargement Eyes: Conjunctiva normal, pupils equal, lids normal Neck: No JVD, supple, no guarding CVS: Normal rate, regular rhythm, no murmurs Resp: No resp distress, equal and normal breath sounds bilaterally GI: Nondistended, soft, no tenderness to palpation, no rebound or guarding Ext: No deformities, no edema, normal range of motion in upper and lower ext Back: Upper lumbar right-sided tenderness in the right Skin: No rash, warm Lymphatic: No lymphadeopathy noted Neuro: Awake, alert. Face symmetric. GCS 15. Physical Exam - Vital signs Vitals: Temp Pulse Resp BP Pulse Ox 98.5 F 101 H 16 121/62 100 04/02/19 07:48 04/02/19 07:48 04/02/19 07:48 04/02/19 07:48 04/02/19 07:48 Course - Re-evaluation Re-evalutation: 04/02/19 09:04 Cancer patient with fall from standing likely mechanicalno clinical or historical evidence of cauda equina syndrome. Trauma mainly the right lower back. Will get CT chest and full spine to rule out mets/pathologic fractures/pneumothorax. There is no abdominal pain abdominal tenderness or vomiting to suggest intra-abdominal trauma. 04/02/19 10:06 Better with home pain medicine. No traumatic injury of the chest abdomen or pelvis or spine identified on imaging. Patient is reassured. Patient is safe for discharge home. Family in agreement I have discussed with the patient there likely diagnosis, aftercare plan, follow-up plans and my usual and customary return precautions. They verbalized understanding of this. - Vital Signs Vital signs: Temp Pulse Resp BP Pulse Ox 98.5 F 101 H 16 121/62 100 04/02/19 07:48 04/02/19 07:48 04/02/19 07:48 04/02/19 07:48 04/02/19 07:48 - Diagnostic Test Radiology reviewed: Image reviewed, Reports reviewed Discharge - Discharge Clinical Impression: Fall from standing Qualifiers: Encounter type: initial encounter Qualified Code(s): W19.XXXA - Unspecified fall, initial encounter Condition: Good Disposition: HOME, SELF-CARE Instructions: Low Back Pain ([facility]) Referrals: ESA GONZALEZ MD [Primary Care Provider] - Follow up as needed
[2019-04-02 10:40] VITALS: BP 103/55
== END 2019-04-02 10:39 | disposition home or self-care (01) ==
LOC: ER 07:33
DX: M54.5 Low back pain (principal); R10.9 Unspecified abdominal pain; R07.81 Pleurodynia; W19.XXXA Unspecified fall, initial encounter
CPT/HCPCS: 71250; 74176; 99284